=== PATIENT | female | born 1990 | race Caucasian/White ===

== ENCOUNTER 2020-04-08 09:09 | Outpatient (REF) | payer OTHER, SELFPAY ==
[2020-04-08 11:07] LABS: COVID-19 Test Negative (Negative)
== END 2020-04-08 09:10 | disposition home or self-care (01) ==
LOC: HO.LAB 09:09
PROVIDERS: Visit Provider Internal Medicine
DX: Z20.828 Contact with and (suspected) exposure to other viral communicable diseases (principal)
CPT/HCPCS: 87635; C9803

== ENCOUNTER 2020-05-16 09:40 | Outpatient (REF) | payer OTHER, SELFPAY ==
[2020-05-16 10:17] LABS: COVID-19 Test Negative (Negative); IDNOW Serial# 55D5AD1C
== END 2020-05-16 09:41 | disposition home or self-care (01) ==
LOC: HO.EMPCOV 09:40
PROVIDERS: Visit Provider Internal Medicine
DX: Z20.828 Contact with and (suspected) exposure to other viral communicable diseases (principal)
CPT/HCPCS: 87635; C9803

== ENCOUNTER 2020-05-21 06:37 | Outpatient (REF) | payer OTHER, SELFPAY ==
[2020-05-21 06:59] LABS: COVID-19 Test Negative (Negative)
== END 2020-05-21 06:38 | disposition home or self-care (01) ==
LOC: HO.EMPCOV 06:37
PROVIDERS: Visit Provider Internal Medicine
DX: Z20.828 Contact with and (suspected) exposure to other viral communicable diseases (principal)
CPT/HCPCS: 36415; 87635; C9803

== ENCOUNTER 2020-05-30 08:00 | Outpatient (RCR) | payer BC, SELFPAY | END 2020-06-21 07:31 | disposition other institution (70) | LOC: HO.PT 08:00 | PROVIDERS: Visit Provider Nurse Practitioner Pediatrics | DX: M45.9 Ankylosing spondylitis of unspecified sites in spine (principal) | CPT/HCPCS: 97110; 97112; 97140; 97162; 97530 ==

== ENCOUNTER 2020-08-19 12:53 | Outpatient (REF) | payer BC, SELFPAY ==
[2020-08-20 14:40] LABS: SARS-COV-2 PCR UMBRL NEGATIVE
== END 2020-08-19 12:54 | disposition home or self-care (01) ==
LOC: HO.LAB 12:53
PROVIDERS: Visit Provider Internal Medicine
DX: Z20.822 Contact with and (suspected) exposure to COVID-19 (principal)
CPT/HCPCS: 36415; C9803; U0003

== ENCOUNTER 2020-09-16 11:55 | Outpatient (REF) | payer OTHER, SELFPAY ==
[2020-09-16 12:28] LABS: COVID-19 Test Negative (Negative)
== END 2020-09-16 11:56 | disposition home or self-care (01) ==
LOC: HO.EMPCOV 11:55
PROVIDERS: Visit Provider Internal Medicine
DX: Z20.822 Contact with and (suspected) exposure to COVID-19 (principal)
CPT/HCPCS: 36415; 87635; C9803

== ENCOUNTER 2021-06-17 11:32 | Outpatient (REF) | payer BC, SELFPAY ==
[2021-06-20 15:17] LABS: TS Negative Control Passed; TS Panel A 0; TS Panel B 0; TS Positive Control Passed; TSpotTB Negative (Negative)
== END 2021-06-17 11:33 | disposition home or self-care (01) ==
LOC: HO.LAB 11:32
PROVIDERS: Visit Provider Physician Assistant
DX: Z11.1 Encounter for screening for respiratory tuberculosis (principal)
CPT/HCPCS: 36415; 86481

== ENCOUNTER 2021-08-06 08:47 | Outpatient (REF) | payer BC, SELFPAY ==
[2021-08-06 10:21] LABS: HBS Num1 24.45 mIU/mL (0-7.99); ~Hepatitis B Surface Antibody REACTIVE (Nonreactive)
[2021-08-08 01:32] LABS: Rubella IgG Antibody 3.07 Index
== END 2021-08-06 08:48 | disposition home or self-care (01) ==
LOC: HO.LAB 08:47
PROVIDERS: Visit Provider Physician Assistant
DX: Z01.84 Encounter for antibody response examination (principal)
CPT/HCPCS: 36415; 86706; 86735; 86762; 86765

== ENCOUNTER 2022-11-03 08:38 | Outpatient (REF) | payer BC, SELFPAY ==
[2022-11-03 10:01] LABS: MANUAL DIFF FLAG NO
[2022-11-03 10:11] LABS: Basophils Percent Auto 0.2 % (0-2); Eosinophils Absolute Auto 0.1 X10*3/uL (0.0-0.4); Eosinophils Percent Auto 0.9 % (0-4); Hematocrit 40.1 % (37.0-47.0); Hemoglobin 13.4 g/dl (12.0-16.0); Imm Gran Abs Auto 0.04 X10*3/uL (0.00-0.03); Imm Gran Pct Auto 0.4 % (0.0-0.4); Lymphocytes Absolute Auto 1.2 X10*3/uL (1.2-4.9); Lymphocytes Percent Auto 11.4 % (20-40); Mean Corpuscular HGB Conc 33.4 g/dl (31.0-35.0); Mean Corpuscular Hemoglobin 29.7 pg (27.0-33.0); Mean Corpuscular Volume 88.9 fL (80.0-98.0); Mean Platelet Volume 10.5 fL (9.4-12.3); Monocytes Absolute Auto 0.6 X10*3/uL (0.1-1.2); Monocytes Percent Auto 5.4 % (2-11); Neutrophils Absolute Auto 8.6 x10*3/uL (2.0-8.3); Neutrophils Percent Auto 81.7 % (45-73); Platelet Count 289 X10*3/uL (160-400); Red Blood Count 4.51 X10*6/uL (4.20-5.50); Red Cell Distribution Width 12.8 % (11.0-16.0); White Blood Count 10.6 X10*3/uL (4.8-10.8)
[2022-11-03 10:31] LABS: Glucose 1 Hour PP 50gm Dose 223 mg/dL (60-140)
[2022-11-04 04:10] LABS: Syphilis Screen Nonreactive (Nonreactive)
== END 2022-11-03 08:39 | disposition home or self-care (01) ==
LOC: HO.LAB 08:38
PROVIDERS: Visit Provider Advanced Practice Midwife
DX: O09.92 Supervision of high risk pregnancy, unspecified, second trimester (principal)
CPT/HCPCS: 36415; 82950; 85025; 86780

== ENCOUNTER → 2025-01-14 13:49 | Outpatient (BNV) | payer BC, SELFPAY | PROVIDERS: Emergency Provider Emergency Medicine; Visit Provider Radiology Diagnostic Radiology | DX: M54.2 Cervicalgia (principal); S09.90XA Unspecified injury of head, initial encounter; M21.252 Flexion deformity, left hip; Z00.00 Encounter for general adult medical examination without abnormal findings; M25.532 Pain in left wrist; M25.552 Pain in left hip; M79.642 Pain in left hand | CPT/HCPCS: 70450; 71045; 72125; 72220; 73110; 73130; 73502 ==

== ENCOUNTER 2025-01-14 13:51 | Emergency (ER) | payer SELFPAY ==
--- NOTE | ~2025-01-14 | XR_ITS ---
CLINICAL HISTORY: fall 4 views left wrist Comparison: None Findings: No carpal bone fractures or carpal malalignment. Distal radiocarpal joint intact. Radial and ulnar styloid preserved. No bony erosive changes. Bone mineralization and soft tissues within normal limits. No radiopaque foreign body. Impression: 1. Normal left wrist. This document has been electronically signed by: Gerardo Haddad MD on 01/14/2025 15:29:36
--- NOTE | ~2025-01-14 | XR_ITS ---
CLINICAL HISTORY: fall onto buttocks 3 views sacrum and coccyx Comparison: None Findings: There is foreshortening of the left femoral neck probable fracture correlate with dedicated left hip x-ray Sacrococcygeal joint intact.SI joints intact No radiopaque foreign body. Impression: 1. Marked foreshortening left femoral neck probable fracture correlate with a dedicated left hip x-ray. This document has been electronically signed by: Gerardo Haddad MD on 01/14/2025 15:32:39
--- NOTE | ~2025-01-14 | XR_ITS ---
CLINICAL HISTORY: fall ?L hip fx 2 views left hip. Single AP pelvis. Comparison: CR - XR SACRUM COCCYX MIN 2V - 01/14/25 14:54 EDT Findings: There is flattening of the left femoral head. Foreshortening of the left femoral neck Normal congruence of the right femoroacetabular joint. SI joints pubic rami and symphysis pubis intact. No periostitis or bony destruction. Bone mineralization and soft tissues within normal limits. No radiopaque foreign body. Impression: 1. There is [id number] flattening of the left femoral head with foreshortening of the left femoral neck. These findings may be developmental or due to remote trauma but a thin-section CT of the left hip to include the bony pelvis is recommended no contrast is necessary. Superimposed acute fracture needs to be excluded This document has been electronically signed by: Gerardo Haddad MD on 01/14/2025 16:54:18
--- NOTE | ~2025-01-14 | XR_ITS ---
CLINICAL HISTORY: med clearance 1 view chest x-ray. Comparison: None Findings: Normal lung volumes. Lungs are clear. No pneumothorax or pleural effusion. Heart size normal. No passive venous congestion. No midline shift or tracheal deviation. No acute fracture. Bilateral nipple piercings Impression: 1. No acute cardiopulmonary disease. This document has been electronically signed by: Gerardo Haddad MD on 01/14/2025 16:48:37
--- NOTE | ~2025-01-14 | XR_ITS ---
CLINICAL HISTORY: fall 3 views left hand Comparison: None Findings: No fractures, subluxations or dislocations. No periostitis or bony destruction. Joint intervals are preserved. Ulnar styloid perserved. Normal bone mineralization and soft tissues. Carpal bones unremarkable.. No radiopaque foreign body. Impression: 1. No acute fractures or malalignment This document has been electronically signed by: Gerardo Haddad MD on 01/14/2025 15:27:20
--- NOTE | ~2025-01-14 | CT_ITS ---
CLINICAL HISTORY: fall 8 ft w head strike CT cervical spine without intravenous contrast Comparison: None Findings: Craniocervical junction: No occipital condylar fractures. No evidence of atlantooccipital dissociation. The anterior and posterior arch and lateral masses of C1 are intact. Odontoid and atlanto-dental interval intact. The pars interarticularis of C2 is intact. There is normal vertebral body heights with no evidence of compression fracture. There is normal cervical alignment. No locked or perched facets. No spinous process fractures. Lordotic curvature is straightened. The retropharyngeal soft tissues are not widened. Segmental analysis as below (MR is more accurate in the evaluation of disc herniation and central canal pathology): C2-C3: No herniation or stenosis. C3-C4: No herniation or stenosis. C4-C5: No herniation or stenosis. C5-C6: No herniation or stenosis. C6-C7: No herniation or stenosis. C7-T1: No herniation or stenosis. The bones are without evidence of lytic or blastic lesion. Lung apices are unremarkable. Impression: 1. Negative CT cervical spine for acute process. This document has been electronically signed by: Gerardo Haddad MD on 01/14/2025 16:03:24
--- NOTE | ~2025-01-14 | CT_ITS ---
CLINICAL HISTORY: fall 8 ft w head strike CT head without IV contrast Comparison: None Findings: The ventricles are normal in configuration. Basilar cisterns intact. No intracranial hemorrhage, mass-effect or midline shift. No extra-axial fluid collections. The parenchyma is unremarkable in attenuation. Ruby-white matter junction preserved. No evidence of acute large vessel or territorial ischemia. Brainstem and cerebellum unremarkable. The calvarium is intact. The imaged portion of the paranasal sinuses are clear. No mastoid effusions. The orbital contents are unremarkable. Impression: 1. No CT evidence of acute intracranial pathology. Motion may obscure subtle pathology This document has been electronically signed by: Gerardo Haddad MD on 01/14/2025 16:09:07
[2025-01-14 14:00] VITALS: BP 121/67; PULSE 74; RESP 18; TEMP 36.3; O2SAT 98; BMI 40.9
--- NOTE | 2025-01-14 14:23 | ED.FALL ---
HPI - Fall General Chief Complaint: Fall Stated Complaint: Left hand/wrist injury Time Seen by Provider: 01/14/25 15:57 Source: patient and family () Mode of arrival: ambulatory Limitations: no limitations History of Present Illness ED Provider: DR. Martinez HPI Narrative: 34-year-old female with no significant past medical history, [id number] was brought in with her for evaluation after fell a flight of stairs with no side rail so patient fell backward from about 4 ft height landing on her buttock area tried to protect her fall with her both hands and wrist, striking the back of her head, no LOC, no headache, no chest pain, did not feel lightheadedness before the fall. 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 Related Data Allergies Allergy/AdvReac Type Severity Reaction Status Date / Time diphenhydramine (From Allergy Unknown HYPER AND Verified 01/14/25 14:02 BENADRYL) SHAKING Review of Systems Review of Systems: All other systems are reviewed and are negative Constitutional: Reports as per HPI and Reports no additional constitutional complaints Eyes: Reports as per HPI and Reports no additional eye complaints Reports system reviewed and no additional complaints, except as documented Cardiovascular: Reports as per HPI and Reports no additional cardiovascular complaints Respiratory: Reports as per HPI and Reports no additional respiratory complaints Gastrointestinal: Reports as per HPI and Reports no additional gastrointestinal complaints Genitourinary: Reports no additional female genitourinary complaints Musculoskeletal: Reports no additional musculoskeletal complaints Skin/Breast: Reports system reviewed and no additional complaints, except as docu Psychiatric: Reports no additional psychiatric complaints Endocrine: Reports no additional endocrine complaints Hematologic/Lymphatic: Reports no additional hematologic/lymphatic complaints Allergic/Immunologic: Reports no additional allergic/immunologic complaints Reports system reviewed and no additional complaints, except as documented and Reports Abnormal speech present [facility] Social History Social History Advance Directives: No Advance Directives Information Provided: Yes Physical Exam Vital Signs: Vital Signs: Last Vital Signs Temp 97.1 F 01/14/25 18:43 Pulse 65 01/14/25 18:43 Resp 18 01/14/25 18:43 BP 100/60 01/14/25 18:43 Pulse Ox 99 01/14/25 18:43 O2 Del Method Room Air 01/14/25 18:43 BMI result Body Mass Index 40.9 Vital signs have been reviewed and appear to be correct. Blood pressure elevated. Heart rate normal. Respiratory rate normal. Temperature normal. Oxygen saturation normal. Appearance: Alert. Oriented X3. No acute distress. Head: Normal external exam. Normocephalic. Atraumatic. No Klein signs noted. No raccoon eyes noted Eyes: PERRLA. EOMI. Conjunctiva and sclera normal. Eyelids normal. ENT: TM's Normal. Pharynx normal. Uvula midline. Moist mucous membranes. No trismus noted. No drooling noted. No muffled voice noted. Neck: Normal inspection. Neck supple. FROM. No adenopathy. Thyroid Normal. No meningeal signs. No neck mass noted. CVS: Normal heart rate and rhythm. Heart sound normal. No murmurs noted. Pulses normal throughout. Respiratory: No respiratory distress. Painless inspiration. Breath sounds normal. No wheezes/rales/rhonchi noted. Chest nontender. No accessory muscle usage noted or decreased air movement noted. Abdomen: Soft and nontender. Bowel sounds normal in all 4 quadrants. No distention noted. No organomegaly noted. No visible injury noted. Back: No CVA tenderness. Full range of motion noted. Skin: Skin warm and dry. Normal skin color. Normal skin turgor. No rashes/lesions/lacerations noted. Extremities: Left hand: Neurovascularly intact, + tenderness over anatomical snuffbox, patient can not clench fist with the left hand, pain with axial loading of the thumb, tenderness over the scaphoid process. Neuro: Oriented X 3. GCS 15. Cranial nerve exam: II-XII are grossly intact No motor deficit. No sensory deficit. Reflexes normal. Course Course Course Narrative: This is a Rapid Medical Examination (RME) performed by Jose Mantilla PA-C in triage. Full HPI, ROS, assessment and treatment plan per primary provider in the Main ED. Hx: 34 yo F here for eval of neck pain and left wrist pain s/p fall [employer]. reports sliding down a flight of stairs (approx 4 feet), fall onto buttocks with head strike. no loc. PE/vitals: no midline c spine tenderness Plan: imaging 2669 -- scans show probable L hip fracture. Will require further imaging. given SUELLEN, clinic charge nurse informed patient will need a bed. Reevaluation(s) Reevaluation #1: 1. A mechanical fall from 4 ft height complaining of left hand pain, high suspicion for left scaphoid process fracture with negative chest x-ray, thumb spica immobilization was applied until see orthopedic. 2. 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 3. GCS of 15, normal neuro exam, no cervical spine injury. Time: 19:45 Medications Administered Discontinued Medications Generic Name Dose Route Start Last Admin Trade Name Freq PRN Reason Stop Dose Admin Acetaminophen 975 mg 01/14/25 17:57 01/14/25 18:21 Acetaminophen 325 Mg Tablet PO 01/14/25 17:58 975 mg ONCE ONE Administration Procedures Orthopedic Splinting/Casting Injury #1: Side: left Upper Extremity Injury Location: wrist Upper Extremity Immobilizer: thumb spica Medical Decision Making Differential Diagnosis Differential Diagnoses: The differential diagnosis associated with the presentation includes (Intracranial bleed, cervical spine fracture, chest injury, back injury, abdominal injury, left hip fracture, old congenital hip deformity, electrolyte derangement, severe anemia.) Admission/Observation Consideration of admission/observation: Escalation of care including admission/observation considered Lab Data MDM Lab Attestation statement: I reviewed the patient's lab results. 01/14/25 16:56 01/14/25 16:56 Labs: Lab Results 01/14/25 Range/Units 16:56 WBC 10.8 (4.8-10.8) X10*3/uL RBC 4.52 (4.20-5.50) X10*6/uL Hgb 13.7 (12.0-16.0) g/dl Hct 40.7 (37.0-47.0) % MCV 90.0 (80.0-98.0) fL MCH 30.3 (27.0-33.0) pg MCHC 33.7 (31.0-35.0) g/dl RDW 12.6 (11.0-16.0) % Plt Count 300 (160-400) X10*3/uL MPV 9.9 (9.4-12.3) fL Immature Gran % (Auto) 0.3 (0.0-0.4) % Neut % (Auto) 69.7 (45-73) % Lymph % (Auto) 18.9 L (20-40) % Wilcox % (Auto) 7.5 (2-11) % Eos % (Auto) 3.1 (0-4) % Baso % (Auto) 0.5 (0-2) % Lymph # (Auto) 2.0 (1.2-4.9) X10*3/uL Wilcox # (Auto) 0.8 (0.1-1.2) X10*3/uL Eos # (Auto) 0.3 (0.0-0.4) X10*3/uL Baso # (Auto) 0.1 (0.0-0.2) X10*3/uL Abs Immat Gran (auto) 0.03 (0.00-0.03) X10*3/uL Absolute Neuts (auto) 7.6 (2.0-8.3) x10*3/uL Absolute Nucleated RBC 0.000 (0.0-0.012) X10*3/uL Nucleated RBC % (auto) 0.0 (0.0-0.2) /100WBC Sodium 139 (135-145) mmol/L Potassium 3.7 (3.3-5.1) mmol/L Chloride 104 (96-108) mmol/L Carbon Dioxide 26 (22-29) mmol/L Anion Gap 13 (12-20) BUN 16 (9-16) mg/dL Creatinine 0.64 (0.5-1.4) mg/dL Estim Creat Clear Calc 135.4 Estimated GFR > 60 Random Glucose 86 (60-115) mg/dL Calcium 9.1 (8.4-10.2) mg/dL Troponin I High Sens < 2.7 (<3.5-17.0) ng/L Beta HCG, Quant < 2 mIU/mL Independent Interpretation I performed an independent interpretation of an: Plain X-Ray (Hip/pelvis/chest/left hand/left wrist x-ray/sacrum and coccyx x-ray:1. There is kpyp-eu-qcbgmema flattening of the left femoral head with foreshortening of the left femoral neck. These findings may be developmental or due to remote trauma but a thin-section CT of the left hip to include the bony ) and CT Scan (CT head/C-spine: No acute intracranial pathology, no cervical spine injury.) Radiology Impression Discussion of test interpretation with radiology: I have reviewed the radiologist's reading. Discharge Plan Discharge Clinical Impression: Contusion of back, Closed fracture of scaphoid of left wrist Patient Disposition: Home, Self-Care Instructions: Contusion in Adults (ED), Scaphoid Fracture (ED) Additional Instructions: Take vyyt-pao-pqwegko Tylenol every 6 hours if needed for pain. Keep the splint on your left wrist until you see the orthopedic. Referrals: Molly Rose MD [Physician, Hand Surgery] Stand Alone Forms: Work/School Release Print Language: Ghanaian
--- OUTSIDE RECORDS SUMMARY | 2025-01-14 16:23 | XMS_ITS | Encounter Summary ---
Author Organization [facility] Address [address] [place] [phone] Phone Care Team Providers Care Criminology Professor Name Role Phone Dona Anderson MD Unavailable Nacho Martin MD Primary Care Provider [phone] Reason for Referral * Consultation (Within 3 days (urgent)) - Closed Specialty Diagnoses / Procedures Referred By Valery t Referred To Contact Rhonda Ray CNM [address] [place] [phone] Phone: tel: fax: [email or web address] [address] [place] [address] Phone: tel: Referral ID Status Reason Start Date Expiration Date Visits Re quested Visits Authorized [id number] Closed 12/04/2022 12/05/2023 1 1 Encounter Details Date Type Department Care Team (Late st Contact Info) Description 12/04/2022 Telephone [facility] Obstetrics - Virtual Department [address] [place] [phone] Rhonda Ray CNM [address] [phone] Social History Tobacco Use Types Packs/Day Years Used Date Smoking Tobacco: Never Smokeless Tobacco: Never Alcohol Use Standard Drinks/Week Comments Not Currently 0 (1 standard drink = 0.6 oz pur e alcohol) Occ Education Answer Date Recorded Are you interested in more education? Not on nancy e 09/11/2022 Are you concerned about learning? Not on file 09/11/2022 No 09/11/2022 No 09/11/2022 Digital Access Answer Date Recorded No 10/12/2022 No 10/12/2022 Reliable internet access at home? Not on file 10/12/2022 Device with a working camera? Not on file Comments Yes Sex and Gender Information Value Date Recorded Sex Assigned at Not on file Legal Sex Female 8:58 PM EDT Gender Identity Not on file Sexual Orientation Not on file documented as of this encounter Plan of Treatment Scheduled Referrals Name Type Priority Associated Diagnoses Order Schedule Ambulatory referral to [facility] Sleep Medicine Outpatient Referral Routine Ordered: 12/04/2022 documented as of this encounter Visit Diagnoses Not on filedocumented in this encounter Care Teams Criminology Professor Relationship Specialty Start Date End Date Nacho Martin MD [address] [place] [address] [phone] [email or web address] PCP - General 05/20/17 Dona Anderson MD [address] [place] [phone] [email or web address] Historical LMR Provider 03/04/17 documented as of this encounter Additional Source Comments The information contained in this document represents components of the legal health record. It is not the complete legal health record.[facility]
--- OUTSIDE RECORDS SUMMARY | 2025-01-14 16:23 | XMS_ITS | Clinical Summary ---
Author Organization [facility] Address [address] [place] [id number] Phone Care Team Providers Care Magnetic Tape Composer Operator Name Role Phone Dona Anderson MD Unavailable Nacho Martin MD Primary Care Provider [phone] Allergies Active Allergy Reactions Criticality Noted Date Comments Diphenhydramine Hcl 07/22/2016 Medications vitamins with ferrous fumaric-Folic acid (MARY ) 28 mg iron- 800 mcg Tab Take 1 tablet (0.8 mg total) by mouth daily. 90 tablet 3 3 Active FREESTYLE LITE Strp strips 1 each by Miscellaneous route 4 (four) times a day. 150 strip 11 3 Active FREESTYLE LITE METER meter kit Use as instructed 1 each 3 Active lancets 28 gauge Misc 1 each by Miscellaneous route 4 (four) times a day. 150 each 11 3 Active acetone, urine, test (KETONE URINE TEST) Strp 1 each by Miscellaneous route every morning. 50 strip 10 3 Active omeprazole (PRILOSEC) 20 MG capsule Take 1 capsule (20 mg total) by mouth daily. 30 capsule 3 Active Active Problems Problem Noted Date Diagnosed Date Pre-eclampsia in third trimester 12/06/2022 Overview (12/14/2022): Pt transferred to [facility] and having IOL at 34w for severe features & ?partial placental abruption. Will likely return to [facility] for and [facility] for PPV 2x wkly HELLP labs Immediate eval of well being PE and serial BP (in office or CBC) 2x wkly visits Betamethasone if < 34 wks 2x wkly BPP/NST Growth q 3-4 wks Delivery at 37 wks Assessment & Plan (01/07/2023 10:36 PM EDT): Fifi is a 32 y.o. at 33w5d here for surveillance due to new diagnosis of pre-e. She Denies any SWEENEY, epigastric pain, Visual changes, and sudden onset of swelling. Overall she feels well. Had questions on [facility] and which group to see since she has decided to transfer care due to her diagnosis. -Reactive NST today in the office Assessment & Plan (12/06/2022 11:14 PM EDT): Fifi was diagnosed with pr-e yesterday. See CBC encounter She needs the following f/u: -Twice weekly testing with NST one day and BPP another day w/ visits w/ provider on both days for BP checks -Weekly repeat labs -She is coming to the CBC tomorrow for NST and repeat steroids. Will need a BPP at the end of the week -orders placed Toshia Goins CNM Assessment & Plan (12/06/2022 10:29 PM EDT): -Repeat labs -NST -Will discuss POC going forward -12/06/22 10:08 PM -Reactive NST -Denies any SWEENEY, epigastric pain, Visual changes, and sudden onset of swelling. - Component Ref Range & Units 12/06/22201112/04/22 1321 09/03/22 0827 URINE TOTAL PROTEIN mg/dL 186.9 86.5 7.6 URINE CREATININE mg/dL 105 165 60 URINE TP CRE RATIO 0 - 0.19 1.78 High 0.52 High 0.13 ALKALINE PHOSPHATASE 39 - 117 U/L 157 High 83 TOTAL BILIRUBIN 0.0 - 1.2 mg/dL <0.2 0.2 DIRECT BILIRUBIN 0 - 0.3 mg/dL <0.2 Bilirubin (Indirect) 0 - 1.5 mg/dL NOT CALCULATED AST 0 - 37 U/L 17 17 18 ALT 0 - 40 U/L 28 35 16 Component Ref Range & Units 12/06/22202712/04/22 1302 09/03/22 0827 07/07/22 1703 WBC 4.00 - 11.00 K/uL 9.27 9.13 12.32 High 11.20 High RBC 3.72 - 5.30 M/uL 4.06 4.67 4.37 4.38 HGB 10.6 - 15.5 g/dL 12.2 13.8 13.1 13.4 HCT 32.0 - 45.0 % 35.5 41.5 38.5 37.9 PLT 140 - 430 K/uL 254 262 -Discussed pre-e theoretical etiologies. Also advised on placental hormone influence. We also discussed management going forward. She is aware of twice weekly testing, weekly labs and BP checks. -Recommended Cel[place] for lung maturity. Discussed Benefits/ and SE. Also discussed the potential risks of prematurity for the baby. She agrees with POC -If plan changes to delivery before 35wks she will need to deliver at [facility] -She will need to come back to the CBC tomorrow night at 10pm for 2nd dose of celeston -RN will call her tomorrow to schedule f/u in the office -Discussed Pre-e SE and when to call cnm Assessment & Plan (12/06/2022 5:24 PM EDT): Preeclampsia diagnosis at 33wks. Mild range B/Ps and TPCR of 0.52. Encounter for supervision of normal first in first trimester 12/04/2022 Gestational diabetes mellitus (GDM) in [facility] 11/05/2022 Overview (11/05/2022): Diagnosis of gDM - 1-hr GTT 223 (in media) 1 hour 130 (Deb Dwyer) or 140 (National Diabetes Association), and 180 is overt diagnosis 3 hour gtt: 3 hr: 95/ 180 / 155 / 140 (Deb Dwyer) 2 values equal or greater Plan for diet controlled gDM o CEDE o Routine care Assessment & Plan (12/03/2022 9:01 AM EDT): Pt reports most fastings are in the 70-80s range with outlier of 94. All 1hr pp normal except one which was 150 after visiting her mom and eating potatoes. Pt very aware of which foods increase her BS. Has appt with KRISHANClarence on Wednesday. We discussed possibility of pre-existing insulin resistance based on family hx, high 1hr of 223, and A1C of 5.7 during We discussed primary goal is to control bs during and encouraged pt to follow up with PCP pp. Pt is exercising regularly --walking. Assessment & Plan (11/19/2022 9:35 AM EDT): Was referred to [facility] but has not heard from them yet - given instructions to call for appt. Has been testing and following ADA diet. Rare fasting elevations, range 75-110, 12 days of QID testing reviewed and only 4 abnormal values. Advised she is off to a great start. F/u with [facility] for further counseling Assessment & Plan (11/05/2022 10:05 AM EDT): Reviewed diagnosis today. Discussed rationale for treatment, plan of care for . 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 Gave limited counseling info in AVS and sent testing supplies to pharmacy. Referred to [facility]. She will start logging right away so she can bring into to them. Right ovarian cyst 10/02/2022 Overview (10/02/2022): 2.5 cm complex cyst seen on anatomy US Not seen on follow up Follow up PP at 6 weeks Assessment & Plan (10/02/2022 10:17 AM EDT): 2.5 cm complex cyst seen on anatomy US Not seen on follow up Follow up PP at 6 weeks High-risk , third trimester 05/28/2022 Overview (11/19/2022): CNM OB-CMI score: 0 [05/26/2022] Group PN care? * Rh pos GC/Chlam neg PAP 06/2022 NILM HPV neg Tdap 11/19/22 Flu rec'd fall 2021 COVID-19 received x 2 + booster Hgb 13.4 GTT 223 - GDM dx 28 wk Repeat RPR neg GBS * PPBC * screening plans cfDNA, carrier screening Assessment & Plan (12/03/2022 8:56 AM EDT): Fifi is a 32yo @32+6 wks baby is very active. Pt denies vb, lof, ctxs Pt has preps in place for baby boy Joe . Not planning circ Has ongoing pedal and LLE, normotensive, encouraged comforts GERMAIN 2 wks. Assessment & Plan (11/19/2022 9:38 AM EDT): Here with her partner. Has been feeling well. Recently seen in hospital for swelling and elevated BP recorded at school - BP was normotensive in the hospital. We discussed third trimester warning signs, including s/s of pre-e, and reasons to call, affirmed decision to reach out that night as she was worrying it might have been too hasty. Feeling ample FM. EPDS 3, reviewed resources. TDAP today. Discussed alternatives to [facility] CBE as it does not work with her schedule. 2+ proteinuria seen following visit, normotensive. Consider renal labs if still elevated at n.v. Assessment & Plan (11/05/2022 10:07 AM EDT): Here with her partner. Second trimester flew by! Now feeling some more discomforts. Sleeping is challenging, mostly due to heartburn, which seems somewhat positional. Heartburn is really severe for her, takes max # of Tums by midday without relief. Cannot sleep due to heartburn, wakes up and vomits. Discussed starting omeprazole, she will try this, check in at n.v. Assessment & Plan (10/02/2022 10:16 AM EDT): Fifi is a 32 y.o. at 24w0d doing well. Denies VB/LOF/Ctxs. + FM. Discussed 28 week labs and orders placed. 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 Just shadowed a L&D nurse and loved it! Had nml Anatomy US follow up Assessment & Plan (09/04/2022 10:40 AM EDT): Fifi is doing well today- she just had her anatomy scan, appropriate growth, f/u scheduled for limited views. 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 She is worried about timing and missing classes. I encouraged Fifi to continue communicating with her disability program navigator as progresses. We will continue to discuss as well. Fifi had HELLP labs ordered after calling with LE edema and an elevated BP, BP normal today and labs all normal. She has ordered a home cuff, encouraged to bring to next visit to ensure accuracy. GERMAIN in 4 weeks. Assessment & Plan (08/03/2022 1:48 PM EDT): Jemima feels pretty well, still has some days with nausea but mostly improving. Reviewed low-risk cfDNA, neg carrier screening. She is having a libertarian to learn predicted sex this weekend. BP has been mildly elevated at all visits so far. She thinks she has white coat hypertension. Recommended she obtain a home BP cuff and bring to her next visit to calibrate; reviewed utility of checking BP at home when dx of htn is indeterminate. Discussed and ordered anatomy scan. Discussed quickening. Obesity affecting in first trimester 0 05/28/2022 Overview (10/01/2022): Obesity in (BMI >30) BMI at Intake 43 Date Obesity plan of care discussed 05/26/22 BMI > 50 (at 36 weeks or before) transfer to tertiary care * If BMI 40 or greater discuss policy w patient * first trimester screen for diabetes - HgbA1c or 1-hr glucose tolerance test * Nutrtion counseling * 11-20lb weight gain * Growth sono q 4 wks if fundal height not reliable, after 28 weeks * Induction only if indicated * PP lovenox according to guidelines Resolved Problems Problem Noted Date Diagnosed Date Resolved Date IUD (intrauterine device) in place 12/01/2017 06/07/2019 Immunizations Immunization Administration Dates Next Due DTaP, unspecified formulation 11/15/1997 ,04/06/1994,06/05/1993,1992,1992 HPV, unspecified formulation 06/08/2008,08/18/19 08 HPV,quadrivalent 12/03/2008 Hepatitis B, unspecified formulation 11/15/1997, 01/19/1997,07/13/1996 Hib, unspecified formulation 07/13/1996, 06/05/1993,02/10/1993,1992 INFLUENZA, SPLIT VIRUS, TRIV ALENT W/ PRESERVATIVE IM 04/19/2012,03/01/2009 Influenza Quadrivalent Prese rvative Free IM 02/13/2020,03/02/2018,01/29/2016,2012 Influenza Quadrivalent w/ Preservative IM 02/22/2019,02/26/2017 MMR 11/15/1997,04/06/1994 Novel [id number], Injectable 03/01/2009 Polio - OPV 11/15/1997, 4,02/10/1993,1992 Td, unspecified formulation 01/12/2005 Tdap 11/19/2022,09/28/2010 Family History Medical History Relation Comments Diabetes mellitus Mother 2 Relation Status Comments Mother 1 Alive Mother 2 Social History Tobacco Use Types Packs/Day Years Used Date Smoking Tobacco: Never Smokeless Tobacco: Never Tobacco Cessation:Counseling Given: Not Answered Alcohol Use Standard Drinks/Week Comments Not Currently [...] a working camera? Not on file Comments No Sex and Gender Information Value Date Recorded Sex Assigned at Not on file Legal Sex Female 8:58 PM EDT Gender Identity Not on file Sexual Orientation Not on file Last Filed Vital Signs Vital Sign Reading Time Taken Comments Blood Pressure 122/82 12/09/2022 11:44 AM EDT Pulse 98 12/07/2022 10:31 PM EDT Temperature 36.8 C (98.2 F) 12/07/2022 10:00 PM EDT Respiratory Rate 20 12/04/2022 11:45 AM EDT Oxygen Saturation 99% 12/07/2022 10:45 PM EDT Inhaled Oxygen Concentration - - Weight 116.1 kg (256 lb) 12/09/2022 11:44 AM EDT Height 154.9 cm (5' 1 ) 12/04/2022 11:45 AM EDT Body Mass Index 48.37 12/04/2022 11:45 AM EDT Plan of Treatment Health Maintenance Due Date Last Done Comments DEPRESSION SCREENING 2004 COVID-19 VACCINE ( season) 2024 PAP SMEAR 07/07/2025 07/07/2022, 01/29/2016 Adult Td,Tdap Booster 11/19/2032 11/19/2022 , 09/28/2010, 01/12/2005 HIB VACCINES Completed 07/13/1996, 05/18, 02/10/1993, Additional history exists HEPATITIS C SCREENING Completed 07/07/2022 HIV ONE-TIME SCREENING (18-65 YEARS) Completed 07/07/2022 SMOKING STATUS SCREENING (Once After 26 Yrs) Completed 10/02/2022 HEPATITIS A VACCINES Aged Out No long er eligible based on patient's age to complete this topic MENINGOCOCCAL VACCINES (ACWY) Aged Out No longer eligible based on patient's age to complete this topic MENINGOCOCCAL VACCINES (B) Aged Out N o longer eligible based on patient's age to complete this topic PNEUMOCOCCAL VACCINES (0-49 years) Aged Out No longer eligible based on patient's age to complete this topic Medical Devices Not on file Procedures Procedure Name Priority Date/Time Associated Diagnosis Comments HEPATITIS C ANTIBODY, QUALITATIVE Routine 07/07/2022 5:03 PM EST Need for hepatitis C screening test PAP TEST Routine 07/07/2022 12:00 AM EST from Last 3 Months or Most Recently Relevant to Health Maintenance Results * Hepatitis C antibody, qualitative (07/07/2022 5:03 PM EST) HCV NON-REACTIV E NON-REACTI VE [facility] Blood 07/07/2022 5:03 PM EST 07/07/2022 9:27 PM EST Caroline Nuñez [facility] BLOOD ORDERABLES Final Resul t [address] [address] * Pap Test (07/07/2022 12:00 AM EST) 07/07/2022 07/08/2022 9:5 1 AM EST Narrative SEE NARRATIVE - 07/13/2022 11:18 AM EST [address] [address] Market Sales Manager: Ree Stafford MD POLISH COMPOUNDER Cytology Report FINAL DIAGNOSIS A. PAP SMEAR (SUREPATH) CE: SPECIMEN ADEQUACY: Satisfactory for evaluation; transformation zone absent/insufficient. INTERPRETATION: NEGATIVE FOR INTRAEPITHELIAL LESION OR MALIGNANCY. Electronically Signed Out By: CLINT Coleman(ASCP) The Pap test is a screening test primarily for squamous cancers and precursors and has associated false-negative and false-positive results. New technologies such as liquid-based preparations may decrease but will not eliminate all false-negative results. Regular sampling and follow-up of unexplained clinical signs and symptoms are recommended to minimize false negative results. PROCEDURES/ADDENDA HPV Testing (Requested) Ordered Date: 07/08/2022 A. PAP SMEAR (SUREPATH) CE: Human Papilloma Virus Test NEGATIVE for high-risk Human Papilloma Virus types 16, 18, 45 and the Other high risk probe set (Includes 31, 33, 35, 39, 51, 52, 56, 58, 59, 66, 68) Note: Testing performed by [employer] Onclarity HR-HPV analysis. Clinical correlation is advised. This HPV test was performed at [facility], [address] [place] [address]. This test has been FDA approved for SurePath cervical cytology specimens. The accuracy and precision of this test for all other specimen sources has been verified in the Cytopathology Laboratory of the [facility] and has not been cleared or approved by the U.S. Food and Drug Administration. Clinical correlation is advised. CLINICAL HISTORY Date of Last Menstrual Period: Not Provided Menstrual History: Other Clinical Conditions: Screening Pap SPECIMEN SOURCE A: PAP SMEAR (SUREPATH) CE Patient Name: FIFI MARISCAL : 1990 (Age: 32) Sex: F Institution: [facility] Location: [facility] Date of Collection: 07/07/2022 Date of Reported: 07/13/2022 11:18 Results to: Caroline Nuñez MSN Caroline Nuñez CNM CYTOLOGY ORDERABLES Final Result SEE NARRATIVE from Last 3 Months or Most Recently Relevant to Health Maintenance Insurance [employer] NET PARTIAL PPO HEALTH SAFETY NET PARTIAL Member Subscriber Plan / Payer (Ef fective 2022-) Name:Fifi Mariscal Relation to Subscriber:Self Name:Fifi Mariscal Payer ID:Not on file Group ID:Not on file Type:Medicaid Address: [address] OUT STATE PPO [facility] SAFETY NET PARTIAL Member Subscriber Plan / Payer (Ef fective 2022-) Name:Fifi Mariscal Relation to Subscriber:Self Name:Fifi Mariscal Payer ID:Not on file Group ID:Not on file Type:Medicaid Address: [address] OUT [facility] PPO Member Subscriber Plan / Payer (Ef fective 2022-Present) Name:Fifi Mariscal Relation to Subscriber:Self Name:Fifi Mariscal Payer ID:Not on file Group ID:Not on file Type:Medicaid Address: [address] PPO OUT STATE PPO HEALTH SAFETY NET PARTIAL Member Subscriber Plan / Payer (Ef fective 2022-Present) Name:Fifi Mariscal Relation to Subscriber:Self Name:MariscalFifi sanchez Payer ID:Not on file Group ID:Not on file Type:Medicaid Address: [address] PPO HEALTH SAFETY NET PARTIAL Member Subscriber Plan / Payer (Ef fective 2022-Present) Name:Fifi Mariscal Relation to Subscriber:Self Name:Fifi Mariscal Payer ID:Not on file Group ID:Not on file Type:Medicaid Address: [address] OUT [facility] PPO HEALTH SAFETY NET PARTIAL Member Subscriber Plan / Payer (Ef fective 2022-Present) Name:Fifi Mariscal Relation to Subscriber:Self Name:Fifi Mariscal Payer ID:Not on file Group ID:Not on file Type:Medicaid Address: [address] OUT [facility] PPO Claire AKINS MA [facility] SAFETY NET PARTIAL Member Subscriber Plan / Payer (Ef fective 2022-Present) Name:Fifi Mariscal Relation to Subscriber:Self Name:Fifi Mariscal Payer ID:Not on file Group ID:Not on file Type:Medicaid Address: [address] PPO Advance Directives For more information, please contact: [phone] (9AM - 5PM Jaylyn/[facility], Wednesday-Wednesday) * Full Code (Latest Code Status on File) Date Activated Date Inactivated Comments 12/06/2022 8:05 PM Question Answer Comments Code Status Confirmed With: Patient Care Teams Magnetic Tape Composer Operator Relationship Specialty Start Date End Date Nacho Martin MD [address] [place] [address]. [address] [place] [address] [email or web address] PCP - General 05/20/17 Dona Anderson MD [address] [place] [address], [place] [address] [email or web address] Historical LMR Provider 03/04/17 Additional Source Comments The information contained in this document represents components of the legal health record. It is not the complete legal health record.[facility]
[2025-01-14 16:58] VITALS: BP 115/62; PULSE 82; RESP 18; TEMP 36.4; O2SAT 97
[2025-01-14 17:05] LABS: MANUAL DIFF FLAG NO
[2025-01-14 17:11] LABS: Hematocrit 40.7 % (37.0-47.0); Hemoglobin 13.7 g/dl (12.0-16.0); Imm Gran Abs Auto 0.03 X10*3/uL (0.00-0.03); Imm Gran Pct Auto 0.3 % (0.0-0.4); Lymphocytes Absolute Auto 2.0 X10*3/uL (1.2-4.9); Mean Corpuscular HGB Conc 33.7 g/dl (31.0-35.0); Mean Corpuscular Hemoglobin 30.3 pg (27.0-33.0); Mean Corpuscular Volume 90.0 fL (80.0-98.0); NRBC Abs Auto 0.000 X10*3/uL (0.0-0.012); NRBC Pct Auto 0.0 /100WBC (0.0-0.2); Platelet Count 300 X10*3/uL (160-400); Red Blood Count 4.52 X10*6/uL (4.20-5.50); White Blood Count 10.8 X10*3/uL (4.8-10.8)
[2025-01-14 17:19] LABS: Anion Gap 13 (12-20); Blood Urea Nitrogen 16 mg/dL (9-16); Calcium 9.1 mg/dL (8.4-10.2); Carbon Dioxide 26 mmol/L (22-29); Chloride 104 mmol/L (96-108); Creatinine Clr Calc Pharmacy 135.4; Estimated Glomerular Filt Rate > 60; Potassium 3.7 mmol/L (3.3-5.1); Sodium 139 mmol/L (135-145)
[2025-01-14 17:32] LABS: Troponin-I High Sensitivity < 2.7 ng/L (<3.5-17.0)
[2025-01-14 18:43] VITALS: BP 100/60; PULSE 65; RESP 18; TEMP 36.2; O2SAT 99
--- NOTE | 2025-01-14 19:39 | PC.NURSE ---
this rn assumed care of pt, pt resting in stretcher, no acute distress noted.
[2025-01-14 20:12] VITALS: BP 100/60; PULSE 65; RESP 18; TEMP 36.2; O2SAT 99
== END 2025-01-14 20:12 | disposition home or self-care (01) ==
PROVIDERS: Physician Assistant Medical; Emergency Provider Emergency Medicine
DX: S62.002A Unspecified fracture of navicular [scaphoid] bone of left wrist, initial encounter for closed fracture (principal); S30.0XXA Contusion of lower back and pelvis, initial encounter; M54.50 Low back pain, unspecified; R10.2 Pelvic and perineal pain; M54.2 Cervicalgia; R51.9 Headache, unspecified; M25.532 Pain in left wrist; M53.3 Sacrococcygeal disorders, not elsewhere classified; M79.642 Pain in left hand; R07.89 Other chest pain; W10.9XXA Fall (on) (from) unspecified stairs and steps, initial encounter; Y93.9 Activity, unspecified; Y92.9 Unspecified place or not applicable; Y99.8 Other external cause status; Z79.899 Other long term (current) drug therapy
CPT/HCPCS: 29125; 29130; 36415; 70450; 71045; 72125; 72220; 73110; 73130; 73502; 80048; 84484; 84702; 85025; 99284

== ENCOUNTER 2025-01-24 10:28 | Outpatient (AMB) | payer MEDICAID, SELFPAY ==
[2025-01-24 10:47] VITALS: BMI 40.8
--- NOTE | 2025-01-24 10:47 | MHC.OFFVIS ---
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 Seen at ED [facility] where xrays were taken and fracture was confirmed. Patient was advise to wear splint and was referred to orthopedics for further evaluation of her closed fracture of scaphoid of left wrist. Currently states she is doing a little better, swelling has improved however she is having pain around wrist and radiates to her index finger. Allergies diphenhydramine (From BENADRYL) Allergy (Unknown, Verified 01/24/25 10:54) HYPER AND SHAKING HPI HPI FC-Closed fracture of scaphoid of left wrist: Details: Brianna is a 34 year old right hand dominant woman who presents for a possible left scaphoid fracture, S/P fall, DOI: 01/14/25. She was seen in the ED and placed in a thumb spica splint. She complains of pain in her left 2nd MCP joint & wrist, worse with some ROM or activities. She fell off of her basement stairs, as there was no railing at the time in her new house. 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 [facility] Social History (Updated 01/24/25 @ 11:05 by Ree Valerio 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 [employer] All systems reviewed & are unremarkable except as noted in HPI and below Physical Exam Vital Signs: BMI result Body Mass Index 40.8 Const General: cooperative, healthy appearing and no acute distress Orientation/consciousness: patient oriented x3 HEENT Head: Yes normocephalic and Yes atraumatic Eyes EOM: EOMs intact bilaterally Resp Effort & Inspection: normal respiratory effort and able to speak in complete sentences Cardio Jugular venous distension: no JVD Skin General skin exam: turgor normal Rashes: no rashes Neuro General: patient oriented x3 Extrem Other: Evaluation of Left Upper Extremity: The patient is alert, oriented, and in no acute distress Neuro: Median, Ulnar, Radial nerves motor and sensory intact and sensation is normal to the tips of all digits Vascular: Cap refill brisk ROM: She can make a fist and extend all her digits, with some stiffness after wearing her splint Skin: No lacerations or abrasions. General: No Ecchymosis. No Erythema or evidence of infection. Most tender over the 2nd MCP joint Tender over the dorsal aspect of her wrist Mild snuffbox tenderness No tenderness over the scaphoid tubercle Radiographs: 3 views of the left wrist & scaphoid were taken and viewed by me today in clinic. They show a possible non-displaced scaphoid fracture, involving the distal third, there is also some widening of the scapholunate interval of ~3.4mm. Interestingly Left hand pencil press operator carbon products view taken and reviewed today. This did not show any widening bilaterally. Psych Appearance: grossly normal Affect: normal affect Attitude: cooperative Assessment & Plan Assessment & Plan (1) Contusion of left hand: Code(s): S60.222A - Contusion of left hand, initial encounter Category: Medical (2) Left wrist pain: Code(s): M25.532 - Pain in left wrist Category: Medical Plan Assessment & Plan: 1. Left scapholunate interval widening Seen on radiographs, though not the pencil press operator carbon products view 2. Possible left distal third scaphoid fracture 3. Left 2nd MCP joint contusion, S/P fall DOI: 01/14/25 I educated her about these conditions She was fitted for a velcro wrist splint, to be worn like a cast until her next appointment She will work on gentle ROM exercises, while in her splint I discussed activity modifications, she is to lift nothing heavier than a cellphone and also avoid any heavy impact activities, falls, or sports activities until at least her next appointment She works as a nurse, primarily on a computer. She was given a note for work to return to light duty with a 1lb weight limit for the next 4 weeks. I ordered an MRI of her left wrist to evaluate for possible scapholunate ligament injury. It will also image the scaphoid. She will follow up on 01/30/25 when completed for review, this should be a 30 minute appointment Scribed for Molly Rose MD by Eric Leon, emergency medical service manager, on 01/24/25 at 10:50 AM, EST. Orders: Orders MR wrist LT wo con Today M25.532 - Pain in left wrist XR wrist LT w scaphoid Today M25.532 - Pain in left wrist XR wrist LT 2V Today M25.532 - Pain in left wrist Coding Level of Care Code New Pt Level 4 (47566) Diagnoses Contusion of left hand S60.222A Left wrist pain M25.532
--- OUTSIDE RECORDS SUMMARY | 2025-01-24 12:46 | XMS_ITS | Encounter Summary ---
Author Organization [facility] Address [address] [place] [address] Phone Care Team Providers Care Assistant Printer Floor Covering Name Role Phone Dona Anderson MD Unavailable Nacho Martin MD Primary Care Provider [phone] Reason for Referral * Consultation (Within 3 days (urgent)) - Closed Specialty Diagnoses / Procedures Referred By Valery t Referred To Contact Rhonda Ray CNM [address] [place] [address] Phone: tel: fax: [email or web address] [facility] [address] [place] [address] Phone: tel: Referral ID Status Reason Start Date Expiration Date Visits Re quested Visits Authorized [id number] Closed 12/04/2022 12/05/2023 1 1 Encounter Details Date Type Department Care Team (Late st Contact Info) Description 12/04/2022 Telephone [facility] Obstetrics - Virtual Department [address] [place] [address] Rhonda Ray CNM [address] [phone] [email or web address] Social History Tobacco Use Types Packs/Day Years [...] Associated Diagnoses Order Schedule Ambulatory referral to [facility] Sleep Medicine Outpatient Referral Routine Ordered: 12/04/2022 documented as of this encounter Visit Diagnoses Not on filedocumented in this encounter Care Teams Assistant Printer Floor Covering Relationship Specialty Start Date End Date Nacho Martin MD [address] [place] [address] [id number] [email or web address] PCP - General 05/20/17 Dona Anderson MD [address] [place] [phone] [email or web address] Historical LMR Provider 03/04/17 documented as of this encounter Additional Source Comments The information contained in this document represents components of the legal health record. It is not the complete legal health record.[facility]
--- OUTSIDE RECORDS SUMMARY | 2025-01-24 12:46 | XMS_ITS | Clinical Summary ---
Author Organization [facility] Address [address] [place] [address] Phone Care Team Providers Care Provider Relations Representative Name Role Phone Dona Anderson MD Unavailable Nacho Martin MD Primary Care Provider [phone] Allergies Active Allergy Reactions Criticality Noted Date [...] trimester 12/06/2022 Overview (12/14/2022): Pt transferred to [facility] and having IOL at 34w for severe features & ?partial placental abruption. Will likely return to [facility] for and [facility] for PPV 2x wkly HELLP labs Immediate [...] 35wks she will need to deliver at [facility] -She will need to come back [...] trimester 12/04/2022 Gestational diabetes mellitus (GDM) in [facility] 11/05/2022 Overview (11/05/2022): Diagnosis of gDM - [...] care for . 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 We will continue to discuss [...] w/ Preservative IM 02/22/2019,02/26/2017 MMR 11/15/1997,04/06/1994 Novel [id number], Injectable 03/01/2009 Polio - OPV 11/15/1997, 4,02/10/1993,1992 [...] Date Last Done Comments DEPRESSION SCREENING 2004 INFLUENZA VACCINE (#1) 2024 0, 02/22/2019, 03/02/2018, Additional history exists COVID-19 VACCINE ( season) 2025 PAP SMEAR 07/07/2025 07/07/2022, 01/29/2016 Adult Td,Tdap [...] PM EST) HCV NON-REACTIV E NON-REACTI VE [facility] Blood 07/07/2022 5:03 PM EST 07/07/2022 9:27 PM EST Caroline Nuñez [facility] BLOOD ORDERABLES Final Resul t [address] [address] * Pap Test (07/07/2022 12:00 AM EST) 07/07/2022 07/08/2022 9:5 1 AM EST Narrative SEE NARRATIVE - 07/13/2022 11:18 AM EST [address] [address] Hr Administrative Assistant: Ree Stafford MD SLD INCLUSION TEACHER Cytology Report FINAL DIAGNOSIS A. PAP SMEAR [...] 59, 66, 68) Note: Testing performed by [employer] Onclarity HR-HPV analysis. Clinical correlation is advised. This HPV test was performed at [facility], [address] [place] [address]. This test has been FDA approved for SurePath cervical cytology specimens. The accuracy and precision of this test for all other specimen sources has been verified in the Cytopathology Laboratory of the [facility] and has not been cleared or approved by the U.S. Food and Drug Administration. Clinical correlation is advised. CLINICAL HISTORY Date of Last Menstrual Period: Not Provided Menstrual History: Other Clinical Conditions: Screening Pap SPECIMEN SOURCE A: PAP SMEAR (SUREPATH) CE Patient Name: FIFI MARISCAL : 1990 (Age: 32) Sex: F Institution: [facility] Location: [facility] Date of Collection: 07/07/2022 Date of Reported: 07/13/2022 11:18 Results to: Caroline Nuñez MSN us Caroline Nuñez CNM CYTOLOGY ORDERABLES Final Result SEE NARRATIVE from Last 3 Months or Most Recently Relevant to Health Maintenance Insurance HEALTH SAFETY NET PARTIAL Member Subscriber Plan / Payer (Ef fective 2022-Present) Name:Fifi Mariscal Relation to Subscriber:Self Name:Fifi Mariscal Payer ID:Not on file Group ID:Not on file Type:Medicaid Address: [address] PPO HEALTH SAFETY NET PARTIAL Member Subscriber Plan / Payer (Ef fective 2022-Present) Name:Mariscal, Fifi Relation to Subscriber:Self Name:MariscalNiiia Payer ID:Not on file Group ID:Not on file Type:Medicaid Address: [address] [place] [address] HEALTH SAFETY NET PARTIAL Member Subscriber Plan / Payer (Ef fective 2022-Present) Name:Fifi Mariscal Relation to Subscriber:Self Name:Mariscal Fifi Payer ID:Not on file Group ID:Not on file Type:Medicaid Address: [address] PPO [place] HEALTH SAFETY NET PARTIAL Member Subscriber Plan / Payer (Ef fective 2022-Present) Name:Fifi Mariscal Relation to Subscriber:Self Name:Fifi Mariscal Payer ID:Not on file Group ID:Not on file Type:Medicaid Address: [address] PPO Member Subscriber Plan / Payer (Ef fective 2022-Present) Name:Fifi Mariscal Relation to Subscriber:Self Name:Fifi Mariscal Payer ID:Not on file Group ID:Not on file Type:Medicaid Address: [address] OUT STATE PPO HEALTH SAFETY NET PARTIAL Member Subscriber Plan / Payer (Ef fective 2022-Present) Name:Fifi Mariscal Relation to Subscriber:Self Name:Fifi Mariscal Payer ID:Not on file Group ID:Not on file Type:Medicaid Address: [address] OUT [facility] PPO HEALTH SAFETY NET PARTIAL Member Subscriber Plan / Payer (Ef fective 2022-Present) Name:Fifi Mariscal Relation to Subscriber:Self Name:MariscalFifi jim Payer ID:Not on file Group ID:Not on file Type:Medicaid Address: [address] PPO HEALTH SAFETY NET PARTIAL Member Subscriber Plan / Payer (Ef fective 2022-Present) Name:MariscalNiiia Relation to Subscriber:Self Name:Mariscal, Fifi Payer ID:Not on file Group ID:Not on file Type:Medicaid Address: [address] [place] [place] [address] HEALTH SAFETY NET PARTIAL Member Subscriber Plan / Payer (Ef fective 2022-Present) Name:Fifi Mariscal Relation to Subscriber:Self Name:Fifi Mariscal Payer ID:Not on file Group ID:Not on file Type:Medicaid Address: [address] PPO Advance Directives For more information, please contact: [phone] (9AM - 5PM [place], Wednesday-Wednesday) * Full Code (Latest Code Status on File) Date Activated Date Inactivated Comments 12/06/2022 8:05 PM Question Answer Comments Code Status Confirmed With: Patient Care Teams Provider Relations Representative Relationship Specialty Start Date End Date Nacho Martin MD [address] [facility] [address] [place] [address] PCP - General 05/20/17 Dona Anderson MD 22 [facility], [facility] [address] [place] [address] [email or web address] Historical LMR Provider 03/04/17 Additional Source Comments The information contained in this document represents components of the legal health record. It is not the complete legal health record.[facility]
== END 2025-01-24 11:25 | disposition home or self-care (01) ==
LOC: HO.HOS 10:29
PROVIDERS: Visit Provider Orthopaedic Surgery
DX: S60.222A Contusion of left hand, initial encounter (principal); M25.532 Pain in left wrist
CPT/HCPCS: 99203

== ENCOUNTER → 2025-01-24 10:30 | Outpatient (BNV) | payer MEDICAID, SELFPAY | PROVIDERS: Visit Provider Radiology Diagnostic Radiology | DX: S63.392A Traumatic rupture of other ligament of left wrist, initial encounter (principal) | CPT/HCPCS: 73100; 73110 ==

== ENCOUNTER 2025-01-24 10:50 | Outpatient (REF) | payer MEDICAID, SELFPAY ==
--- NOTE | ~2025-01-24 | XR_ITS ---
EXAMINATION: XR WRIST, LEFT CLINICAL INFORMATION: M25.532 - Pain in left wrist COMPARISON: None available. TECHNIQUE: PA, lateral, and oblique views of the left wrist. FINDINGS: The scapholunate interval measures 4-5 mm which is widened. No fracture line is seen. No degenerative changes are noted. XR/XR wrist LT w scaphoid IMPRESSION: Scapholunate joint space widening is consistent with a scapholunate ligament tear. There is no DISI deformity. Electronically signed by: Bull Hernandez MD 01/24/2025 10:41 AM EDT
--- NOTE | ~2025-01-24 | XR_ITS ---
EXAMINATION: XR WRIST, bilateral CLINICAL INFORMATION: M25.532 - Pain in left wrist COMPARISON: Same day x-ray and January 13, 2025 TECHNIQUE: Frontal view bilateral wrists. FINDINGS: Widening of the left scapholunate joint space evident on the earlier x-ray is less apparent on the current examination. There is also mild widening of the scapholunate interval on the right wrist. Measures 3.1 mm. XR/XR wrist LT 2V IMPRESSION: Scapholunate distance widening of the left wrist is less apparent on the current x-ray compared with the x-ray performed earlier today. There is mild widening of the right scapholunate distance consistent with tear or partial tear of right scapholunate ligament. Electronically signed by: Bull Hernandez MD 01/24/2025 11:49 AM EDT
== END 2025-01-24 10:51 | disposition home or self-care (01) ==
LOC: HO.HOSX 10:50
PROVIDERS: Visit Provider Orthopaedic Surgery
DX: S60.222A Contusion of left hand, initial encounter (principal); W10.8XXA Fall (on) (from) other stairs and steps, initial encounter
CPT/HCPCS: 73100; 73110; 99202

== ENCOUNTER → 2025-01-26 14:44 | Outpatient (BNV) | payer MEDICAID, SELFPAY | PROVIDERS: Visit Provider Radiology Diagnostic Radiology | DX: S63.512A Sprain of carpal joint of left wrist, initial encounter (principal) | CPT/HCPCS: 73221 ==

== ENCOUNTER 2025-01-26 14:45 | Outpatient (REF) | payer MEDICAID, SELFPAY ==
--- NOTE | ~2025-01-26 | MR_ITS ---
EXAM: MRI left wrist without contrast TECHNIQUE: Multiplanar - multisequence imaging through an upper extremity joint was performed without contrast. INDICATION: Dorsal and snuffbox pain of the left wrist after falling down stairs PRIOR: X-rays from 2 days ago demonstrating scapholunate joint space widening FINDINGS: Triangular fibrocartilage complex: There is fraying and partial-thickness perforation on the carpal side of the triangular fibrocartilage near the sigmoid notch of radius. Intrinsic wrist ligaments: There is diastases of the scapholunate joint which measures 2.4 mm wide. There is high intermediate signal tracking between scapholunate ligament and the generalized thickening of the ligament concerning for a tear. The lunotriquetral ligament is grossly intact. Extensor compartments: There is trace fluid in the tendon sheath of the fourth extensor compartment. There is linear fluid signal along the radial side of the extensor carpi ulnaris tendon in the region of the distal ulna and proximal row of the carpus. Flexor tendons: Flexor tendons are intact and unremarkable. Carpal tunnel and Guyon's canal: Median nerve appears mildly enlarged with increased signal on fluid since he sequences in the carpal tunnel. However, there is no edema in the thenar muscle group. Gyuon canal structures are unremarkable. Bones/Marrow: Bone edema is present in the base of the second metacarpal. There is also edema in the adjacent soft tissues. Fracture line is not clearly evident. Scapholunate angle is increased measuring 80 degrees. (wnl <60 deg) Scaphocapitate angle is 27 degrees (normally less than 30 degrees). Soft tissues: There is no muscle edema, fatty streaking, or superficial soft tissue edema. There are no cystic lesions. MR/MR wrist LT wo con IMPRESSION: Scapholunate ligament tear. Scapholunate angle is increased consistent with scapholunate dissociation. Scaphocapitate angle is upper range of normal limits. This raises question early changes of DISI deformity, but is not diagnostic. Bone bruise involving the base of the second metacarpal. Partial tear of the extensor carpi ulnaris tendon in the region of the distal ulna. Possible median nerve impingement. The nerve appears enlarged with increased signal in the carpal tunnel. However, there is no evidence of denervation edema in the thenar muscle group. Electronically signed by: Bull Hernandez MD 01/26/2025 03:46 PM EDT RP
--- OUTSIDE RECORDS SUMMARY | 2025-01-26 17:28 | XMS_ITS | Encounter Summary ---
Author Organization [facility] Address [address] [place] [address] Phone Care Team Providers Care Floor Sanding Machine Operator Name Role Phone Dona Anderson MD Unavailable Nacho Martin MD Primary Care Provider [phone] Reason for Referral * Consultation (Within 3 days (urgent)) - Closed Specialty Diagnoses / Procedures Referred By Valery t Referred To Contact Rhonda Ray CNM [address] [place] [address] Phone: tel: fax: [email or web address] [facility] [address] [place] [address] Phone: tel: Referral ID Status Reason Start Date Expiration Date Visits Re quested Visits Authorized [id number] Closed 12/04/2022 12/05/2023 1 1 Encounter Details Date Type Department Care Team (Late st Contact Info) Description 12/04/2022 Telephone [facility] Obstetrics - Virtual Department [address] [place] [address] Rhonda Ray CNM [address] [phone] Social History Tobacco Use Types Packs/Day Years Used Date Smoking Tobacco: Never Smokeless Tobacco: Never Alcohol Use Standard Drinks/Week Comments Not Currently 0 (1 standard drink = 0.6 oz pur e alcohol) Occ Education Answer Date Recorded Are you interested in more education? Not on nacny e 09/11/2022 Are you concerned about learning? [...] Associated Diagnoses Order Schedule Ambulatory referral to [facility] Sleep Medicine Outpatient Referral Routine Ordered: 12/04/2022 documented as of this encounter Visit Diagnoses Not on filedocumented in this encounter Care Teams Floor Sanding Machine Operator Relationship Specialty Start Date End Date Nacho Martin MD [address] [place] [address] [phone] [email or web address] PCP - General 05/20/17 Dona Anderson MD [address] [place] [address] [email or web address] Historical LMR Provider 03/04/17 documented as of this encounter Additional Source Comments The information contained in this document represents components of the legal health record. It is not the complete legal health record.[facility]
--- OUTSIDE RECORDS SUMMARY | 2025-01-26 17:28 | XMS_ITS | Clinical Summary ---
Author Organization [facility] Address [address] [place] [address] Phone Care Team Providers Care Plant Protection Officer Name Role Phone Dona Anderson MD Unavailable Nacho Martin MD Primary Care Provider [phone] Allergies Active Allergy Reactions Criticality Noted Date [...] trimester 12/06/2022 Overview (12/14/2022): Pt transferred to [facility] and having IOL at 34w for severe features & ?partial placental abruption. Will likely return to [facility] for and [facility] for PPV 2x wkly HELLP labs Immediate [...] 35wks she will need to deliver at [facility] -She will need to come back to [...] trimester 12/04/2022 Gestational diabetes mellitus (GDM) in [facility] 11/05/2022 Overview (11/05/2022): Diagnosis of gDM - [...] of care for . 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 We will continue to [...] w/ Preservative IM 02/22/2019,02/26/2017 MMR 11/15/1997,04/06/1994 Novel [id number], Injectable 03/01/2009 Polio - OPV 11/15/1997, 4,02/10/1993,1992 [...] PM EST) HCV NON-REACTIV E NON-REACTI VE [facility] Blood 07/07/2022 5:03 PM EST 07/07/2022 9:27 PM EST Caroline Nuñez [facility] BLOOD ORDERABLES Final Resul t [address] [address] * Pap Test (07/07/2022 12:00 AM EST) 07/07/2022 07/08/2022 9:5 1 AM EST Narrative SEE NARRATIVE - 07/13/2022 11:18 AM EST [address] [address] Tableau Report Developer: Ree Stafford MD BAND SPLITTER Cytology Report FINAL DIAGNOSIS A. PAP SMEAR [...] 59, 66, 68) Note: Testing performed by [employer] Onclarity HR-HPV analysis. Clinical correlation is advised. This HPV test was performed at [facility], [address] [place] [address]. This test has been FDA approved for SurePath cervical cytology specimens. The accuracy and precision of this test for all other specimen sources has been verified in the Cytopathology Laboratory of the [facility] and has not been cleared or approved by the U.S. Food and Drug Administration. Clinical correlation is advised. CLINICAL HISTORY Date of Last Menstrual Period: Not Provided Menstrual History: Other Clinical Conditions: Screening Pap SPECIMEN SOURCE A: PAP SMEAR (SUREPATH) CE Patient Name: FIFI MARISCAL : 1990 (Age: 32) Sex: F Institution: [facility] Location: [facility] Date of Collection: 07/07/2022 Date [...] file Group ID:Not on file Type:Medicaid Address: [address] PPO HEALTH SAFETY NET PARTIAL Member Subscriber Plan / Payer (Ef fective 2022-Present) Name:Mariscal, Fifi Relation to Subscriber:Self Name:MariscalNiiia Payer ID:Not on file Group ID:Not on file Type:Medicaid Address: [address] [place] [address] HEALTH SAFETY NET PARTIAL Member Subscriber Plan / Payer (Ef fective 2022-Present) Name:Fifi Mariscal Relation to Subscriber:Self Name:Mariscal Iffi Payer ID:Not on file Group ID:Not on file Type:Medicaid Address: [address] PPO [place] HEALTH SAFETY NET PARTIAL Member Subscriber Plan / Payer (Ef fective 2022-Present) Name:Fifi Mariscal Relation to Subscriber:Self Name:Fifi Mariscal Payer ID:Not on file Group ID:Not on file Type:Medicaid Address: [address] PPO Member Subscriber Plan / Payer (Ef fective 2022-Present) Name:Fifi Mariscal Relation to Subscriber:Self Name:Fifi Mariscal Payer ID:Not on file Group ID:Not on file Type:Medicaid Address: [address] OUT STATE PPO HEALTH SAFETY NET PARTIAL Member Subscriber Plan / Payer (Ef fective 2022-Present) Name:Fifi Mariscal Relation to Subscriber:Self Name:Fifi Mariscal Payer ID:Not on file Group ID:Not on file Type:Medicaid Address: [address] OUT [facility] PPO HEALTH SAFETY NET PARTIAL Member Subscriber Plan / Payer (Ef fective 2022-Present) Name:Fifi Mariscal Relation to Subscriber:Self Name:MariscalFifi jim Payer ID:Not on file Group ID:Not on file Type:Medicaid Address: [address] PPO HEALTH SAFETY NET PARTIAL Member Subscriber Plan / Payer (Ef fective 2022-Present) Name:MariscalNiiia Relation to Subscriber:Self Name:Mariscal, Fifi Payer ID:Not on file Group ID:Not on file Type:Medicaid Address: [address] [place] [place] [address] HEALTH SAFETY NET PARTIAL Member Subscriber Plan / Payer (Ef fective 2022-Present) Name:Fifi Mariscal Relation to Subscriber:Self Name:Fifi Mariscal Payer ID:Not on file Group ID:Not on file Type:Medicaid Address: [address] PPO Advance Directives For more information, please contact: [phone] (9AM - 5PM [place]lyn/[place], Wednesday-Wednesday) * Full Code (Latest Code Status on File) Date Activated Date Inactivated Comments 12/06/2022 8:05 PM Question Answer Comments Code Status Confirmed With: Patient Care Teams Plant Protection Officer Relationship Specialty Start Date End Date Nacho Martin MD 230 [facility] [address] [place] [address] [email or web address] PCP - General 05/20/17 Dona Anderson MD 22 [facility], [email or web address] [address] [place] [address] [email or web address] Historical LMR Provider 03/04/17 Additional Source Comments The information contained in this document represents components of the legal health record. It is not the complete legal health record.[facility]
== END 2025-01-26 14:46 | disposition home or self-care (01) ==
LOC: HO.MRI 14:45
PROVIDERS: Visit Provider Orthopaedic Surgery
DX: M25.532 Pain in left wrist (principal)
CPT/HCPCS: 73221

== ENCOUNTER 2025-01-30 12:57 | Outpatient (AMB) | payer MEDICAID, SELFPAY ==
--- NOTE | 2025-01-30 13:01 | A.OFFVIS_ITS ---
Vital Signs 01/30/25 13:07 Height 5 ft 1 in Weight 215 lb BMI 40.6 Handedness Right Intake Visit Reasons: OV-Closed fracture of scaphoid of Lt wrist MRI rev Intake Note: Brianna 34 year old right hand dominant woman who presents today for her MRI review of left wrist. At her last visit an MRI of the left wrist was ordered to evaluate for possible scapholunate ligament injury. She was also given a Velcro wrist brace to wear like a cast until this follow up. Patient expresses she has been working on gentle ROM finger activities in her brace and feels fine. Says she mainly her pain in the left index finger and left wrist when she has to type at work. Denies numbness and tingling. Allergies diphenhydramine (From BENADRYL) Allergy (Unknown, Verified 01/30/25 13:06) HYPER AND SHAKING HPI HPI OV-Closed fracture of scaphoid of Lt wrist MRI rev: Details: Brianna is a 34 year old right hand dominant woman who returns for an MRI review of her left wrist, S/P fall, DOI: 01/14/25. She complains of pain in her left 2nd MCP joint & wrist, worse with some ROM or activities. She says overall she is fine , and most of her pain occurs when typing on a computer at work. She denies any numbness or tingling. She fell off of her basement stairs, as there was no railing at the time in her new house. 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 Physical Exam Vital Signs: BMI result Body Mass Index 40.6 Extrem Other: Evaluation of Left Upper Extremity: The patient is alert, oriented, and in no acute distress Neuro: Median, Ulnar, Radial nerves motor and sensory intact and sensation is normal to the tips of all digits Vascular: Cap refill brisk ROM: She can make a fist and extend all her digits, with some stiffness after wearing her splint Most tender over the 2nd MCP joint Tender over the dorsal aspect of her wrist Mild snuffbox tenderness No tenderness over the scaphoid tubercle Radiographs: 3 views of the left wrist & scaphoid from 01/24/25 were reviewed by me today in clinic. They show a possible non-displaced scaphoid fracture, involving the distal third, there is also some widening of the scapholunate interval of ~3.4mm. Interestingly Left hand pencil smoked meat preparer view taken and reviewed today. This did not show any widening bilaterally. Left wrist MRI: FINDINGS: Triangular fibrocartilage complex: There is fraying and partial-thickness perforation on the carpal side of the triangular fibrocartilage near the sigmoid notch of radius. Intrinsic wrist ligaments: There is diastases of the scapholunate joint which measures 2.4 mm wide. There is high intermediate signal tracking between scapholunate ligament and the generalized thickening of the ligament concerning for a tear. The lunotriquetral ligament is grossly intact. Extensor compartments: There is trace fluid in the tendon sheath of the fourth extensor compartment. There is linear fluid signal along the radial side of the extensor carpi ulnaris tendon in the region of the distal ulna and proximal row of the carpus. Flexor tendons: Flexor tendons are intact and unremarkable. Carpal tunnel and Guyon's canal: Median nerve appears mildly enlarged with increased signal on fluid since he sequences in the carpal tunnel. However, there is no edema in the thenar muscle group. Gyuon canal structures are unremarkable. Bones/Marrow: Bone edema is present in the base of the second metacarpal. There is also edema in the adjacent soft tissues. Fracture line is not clearly evident. Scapholunate angle is increased measuring 80 degrees. (wnl <60 deg) Scaphocapitate angle is 27 degrees (normally less than 30 degrees). Soft tissues: There is no muscle edema, fatty streaking, or superficial soft tissue edema. There are no cystic lesions. IMPRESSION: Scapholunate ligament tear. Scapholunate angle is increased consistent with scapholunate dissociation. Scaphocapitate angle is upper range of normal limits. This raises question early changes of DISI deformity, but is not diagnostic. Bone bruise involving the base of the second metacarpal. Partial tear of the extensor carpi ulnaris tendon in the region of the distal ulna. Possible median nerve impingement. The nerve appears enlarged with increased signal in the carpal tunnel. However, there is no evidence of denervation edema in the thenar muscle group. Electronically signed by: Bull Hernandez MD 01/26/2025 Assessment & Plan Assessment & Plan (1) Left scapholunate ligament tear: Code(s): S63.8X2A - Sprain of other part of left wrist and hand, initial encounter Category: Medical (2) Contusion of left hand: Code(s): S60.222A - Contusion of left hand, initial encounter Category: Medical (3) Left wrist pain: Code(s): M25.532 - Pain in left wrist Category: Medical Plan Assessment & Plan: 1. Left scapholunate ligament tear 2. Left 2nd MCP joint contusion vs possible fracture, S/P fall DOI: 01/14/25 I educated her about these conditions I discussed operative and non-operative treatment options The patient would like to proceed with surgery The risks and benefits of operative treatment were discussed with the patient and the patient wishes to proceed with surgery. These risks include, but are not limited to risk of damage to blood vessels, nerves, tendons, infection, recurrence, incomplete relief of preoperative symptoms, persistent pain, possible need for further surgery and the risks associated with regional blocks and anesthesia. The plan is to take the patient to the operating room sometime on 02/01/25 for the following procedures: 1. Left wrist ORIF & scapholunate ligament repair, under general All of the preoperative paperwork including the consent was reviewed today. All the patient's questions were answered. The patient understands that they will be contacted by our collections analyst soon to schedule this procedure She denies Diabetes, blood thinners, asthma, heart, lung, kidney issues Please note that greater than 60 minutes was spent with this patient going over the history, evaluating the patient and radiographs, formulating possible treatment options, discussing them with the patient, and documenting the visit. Scribed for Molly Rose MD by Eric Leon medical receptionist medical assistant, on 01/30/25 at 1:30 PM, EST. Coding Level of Care Code Est Pt Level 5 (34013) Diagnoses Left scapholunate ligament tear S63.8X2A Contusion of left hand S60.222A Left wrist pain M25.532
[2025-01-30 13:07] VITALS: BMI 40.6
--- OUTSIDE RECORDS SUMMARY | 2025-01-30 16:55 | XMS_ITS | Encounter Summary ---
Author Organization [facility] Address [address] [place] [address] Phone Care Team Providers Care Supervisor Fur Dressing Name Role Phone Dona Anderson MD Unavailable Nacho Martin MD Primary Care Provider [phone] Reason for Referral * Consultation (Within 3 days (urgent)) - Closed Specialty Diagnoses / Procedures Referred By Valery t Referred To Contact Rhonda Ray CNM [address] [place] [address] Phone: tel: fax: [email or web address] [address] [place] [address] Phone: tel: Referral ID Status Reason Start Date Expiration Date Visits Re quested Visits Authorized [id number] Closed 12/04/2022 12/05/2023 1 1 Encounter Details Date Type Department Care Team (Late st Contact Info) Description 12/04/2022 Telephone [facility] Obstetrics - Virtual Department [address] [place] [address] Rhonda Ray CNM [address] [id number] Social History Tobacco Use Types Packs/Day Years [...] Associated Diagnoses Order Schedule Ambulatory referral to [facility] Sleep Medicine Outpatient Referral Routine Ordered: 12/04/2022 documented as of this encounter Visit Diagnoses Not on filedocumented in this encounter Care Teams Supervisor Fur Dressing Relationship Specialty Start Date End Date Nacho Martin MD [address] [place] [address] [phone] [email or web address] PCP - General 05/20/17 Dona Anderson MD [address] [phone] [email or web address] Historical LMR Provider 03/04/17 documented as of this encounter Additional Source Comments The information contained in this document represents components of the legal health record. It is not the complete legal health record.[facility]
--- OUTSIDE RECORDS SUMMARY | 2025-01-30 16:55 | XMS_ITS | Clinical Summary ---
Author Organization [facility] Address [address] [place] [phone] Phone Care Team Providers Care Glaze Handler Name Role Phone Dona Anderson MD Unavailable Nacho Martin MD Primary Care Provider [phone] Allergies Active Allergy Reactions Criticality Noted Date [...] trimester 12/06/2022 Overview (12/14/2022): [place] [facility] and having IOL at 34w for severe features & ?partial placental abruption. Will likely return to [facility] for and [facility] for PPV 2x wkly HELLP labs [...] 35wks she will need to deliver at [facility] -She will need to come back to [...] trimester 12/04/2022 Gestational diabetes mellitus (GDM) in [facility] 11/05/2022 Overview (11/05/2022): Diagnosis [...] care for . 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 Assessment & Plan (11/19/2022 9:38 [...] encouraged Fifi to continue communicating with her broadcast program director as progresses. We will continue to discuss [...] neg carrier screening. She is having a constitution party to learn predicted sex this weekend. BP [...] w/ Preservative IM 02/22/2019,02/26/2017 MMR 11/15/1997,04/06/1994 Novel [id number], Injectable 03/01/2009 Polio - OPV 11/15/1997, 4,02/10/1993,1992 [...] PM EST) HCV NON-REACTIV E NON-REACTI VE [facility] Blood 07/07/2022 5:03 PM EST 07/07/2022 9:27 PM EST Caroline Nuñez [facility] BLOOD ORDERABLES Final Resul t [address] [address] * Pap Test (07/07/2022 12:00 AM EST) 07/07/2022 07/08/2022 9:5 1 AM EST Narrative SEE NARRATIVE - 07/13/2022 11:18 AM EST [address] [address] Adoption Agent: Ree Stafford MD PHYSICAL THERAPY TECHNICIAN Cytology Report FINAL DIAGNOSIS A. PAP SMEAR [...] 59, 66, 68) Note: Testing performed by [employer] ([employer]) Onclarity HR-HPV analysis. Clinical correlation is advised. This HPV test was performed at [facility], [address] [place] [address]. This test has been FDA approved for [facility] cervical cytology specimens. The accuracy and precision of this test for all other specimen sources has been verified in the Cytopathology Laboratory of the [facility] and has not been cleared or approved by the U.S. Food and Drug Administration. Clinical correlation is advised. CLINICAL HISTORY Date of Last Menstrual Period: Not Provided Menstrual History: Other Clinical Conditions: Screening Pap SPECIMEN SOURCE A: PAP SMEAR (SUREPATH) CE Patient Name: FIFI MARISCAL : 1990 (Age: 32) Sex: F Institution: [facility] Location: [facility] Date of Collection: 07/07/2022 Date of [...] file Group ID:Not on file Type:Medicaid Address: [address] PPO HEALTH SAFETY NET PARTIAL Member Subscriber Plan / Payer (Ef fective 2022-Present) Name:Mariscal, Fifi Relation to Subscriber:Self Name:MariscalNiiia Payer ID:Not on file Group ID:Not on file Type:Medicaid Address: [address] [place] [address] HEALTH SAFETY NET PARTIAL Member Subscriber Plan / Payer (Ef fective 2022-Present) Name:Fifi Mariscal Relation to Subscriber:Self Name:Mariscal Fifi Payer ID:Not on file Group ID:Not on file Type:Medicaid Address: [address] PPO [place] PARTIAL Member Subscriber Plan / Payer (Ef fective 2022-Present) Name:Fifi Mariscal Relation to Subscriber:Self Name:Fifi Mariscal Payer ID:Not on file Group ID:Not on file Type:Medicaid Address: [address] PPO Member Subscriber Plan / Payer (Ef fective 2022-Present) Name:Fifi Mariscal Relation to Subscriber:Self Name:Fifi Mariscal Payer ID:Not on file Group ID:Not on file Type:Medicaid Address: [address] [place] PPO HEALTH SAFETY NET PARTIAL Member Subscriber Plan / Payer (Ef fective 2022-Present) Name:Fifi Mariscal Relation to Subscriber:Self Name:Fifi Mariscal Payer ID:Not on file Group ID:Not on file Type:Medicaid Address: [address] OUT [facility] PPO HEALTH SAFETY NET PARTIAL Member Subscriber Plan / Payer (Ef fective 2022-Present) Name:Fifi Mariscal Relation to Subscriber:Self Name:MariscalFifi jim Payer ID:Not on file Group ID:Not on file Type:Medicaid Address: [address] PPO HEALTH SAFETY NET PARTIAL Member Subscriber Plan / Payer (Ef fective 2022-Present) Name:MariscalNiiia Relation to Subscriber:Self Name:Mariscal, Fifi Payer ID:Not on file Group ID:Not on file Type:Medicaid Address: [address] [place] [address] HEALTH SAFETY NET PARTIAL Member Subscriber Plan / Payer (Ef fective 2022-Present) Name:Fifi Mariscal Relation to Subscriber:Self Name:Fifi Mariscal Payer ID:Not on file Group ID:Not on file Type:Medicaid Address: [address] PPO Advance Directives For more information, please contact: [phone] (9AM - 5PM [place], Wednesday-Wednesday) * Full Code (Latest Code Status on File) Date Activated Date Inactivated Comments 12/06/2022 8:05 PM Question Answer Comments Code Status Confirmed With: Patient Care Teams Glaze Handler Relationship Specialty Start Date End Date Nacho Martin MD [address] [facility] [address] [place] [phone] [email or web address] PCP - General 05/20/17 Dona Anderson MD [address] [facility] [address] [place] [address] [email or web address] Historical LMR Provider 03/04/17 Additional Source Comments The information contained in this document represents components of the legal health record. It is not the complete legal health record.[facility]
== END 2025-01-30 14:20 | disposition home or self-care (01) ==
LOC: HO.HOS 12:58
PROVIDERS: PCP Physician Assistant; Visit Provider Orthopaedic Surgery
DX: S63.8X2A Sprain of other part of left wrist and hand, initial encounter (principal); S60.222A Contusion of left hand, initial encounter; M25.532 Pain in left wrist
CPT/HCPCS: 99215

== ENCOUNTER → 2025-01-30 12:57 | Outpatient (BNVA) | payer MEDICAID, SELFPAY | PROVIDERS: PCP Physician Assistant; Visit Provider Orthopaedic Surgery | DX: M25.532 Pain in left wrist (principal); S63.8X2A Sprain of other part of left wrist and hand, initial encounter; S60.222A Contusion of left hand, initial encounter | CPT/HCPCS: 99212 ==

== ENCOUNTER 2025-02-01 10:02 | Day surgery (SDC) | payer MEDICAID, SELFPAY ==
--- NOTE | 2025-01-31 09:34 | HO.ANESPROP2 ---
Documented by User: Casie Ruiz NP 01/31/25 09:34 HPI - Anesthesia Eval Consult details Narrative: 34 yr old female for left scaphoid ORIF PMFSH Active Problems Active Problems: All Active Problems (Updated 01/30/25 @ 13:14 by Eric Leon) Left scapholunate ligament tear (Acute) Left wrist pain (Acute) Contusion of left hand (Acute) Social History Social History Alcohol intake: current Alcohol intake frequency: holidays/special occasions only Comment: socially Patient Tobacco Use Status: Never used Tobacco Use of substances other than those prescribed or required for medical reasons: Yes Advance Directives: No Advance Directives Information Provided: Yes Current occupational status: employed 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 Allergies Allergy/AdvReac Type Severity Reaction Status Date / Time diphenhydramine (From Allergy Unknown HYPER AND Verified 01/30/25 13:06 BENADRYL) SHAKING Home Medications ?Medication ?Instructions ?Recorded ?Confirmed ?Last Taken ?Type escitalopram oxalate 10 mg tablet 15 mg PO DAILY 01/30/25 Unknown History Documented by User: Virginie Schultz MD 02/01/25 12:18 PMFSH Family History Family history of problems with anesthesia: No Surgical History History of Problems with Anesthesia: No Social History Social History Alcohol intake: current Alcohol intake frequency: holidays/special occasions only Comment: socially Patient Tobacco Use Status: Never used Tobacco Use of substances other than those prescribed or required for medical reasons: Yes Advance Directives: No Advance Directives Information Provided: Yes Current occupational status: employed 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 Allergies Allergy/AdvReac Type Severity Reaction Status Date / Time diphenhydramine (From Allergy Unknown HYPER AND Verified 01/30/25 13:06 BENADRYL) SHAKING Home Medications ?Medication ?Instructions ?Recorded ?Confirmed ?Last Taken ?Type escitalopram oxalate 10 mg tablet 15 mg PO DAILY 01/30/25 Unknown History Exam Airway Mallampati Class: II TM Dist: >3cm Neck ROM: Full Heart: rrr Lungs: cta Assessment and Plan Assessment Anesthesia Assessment: Anesthesia Plan Discussed and Chart Reviewed Final Anesthetic Review Family History of Problems with Anesthesia: No History of Problems with Anesthesia: No NPO: Yes ASA Class: II (morbid obesity's ) Final Preanesthetic Review: No Changes in Pt Med Stat, Meds/Allgs Chart Reviewed, Consent Obtained/Reviewed and Anes Risks/Benef Reviewed Patient Risk: Intermediate Procedure Risk: Intermediate Anesthetic Plan Anesthetic Plan: GA, Regional Block and Agree w/ Assess. and Plan Disposition: Standard PACU
[2025-02-01] VITALS (7 sets, daily range): BP systolic 129–145; BP diastolic 72–98; PULSE 82–105; RESP 18; TEMP 36.2–36.6; O2SAT 95–97; BMI 41.1
--- NOTE | ~2025-02-01 | FL_ITS ---
EXAMINATION: FL GUIDANCE ONLY HISTORY: ORIF COMPARISON: None available. TECHNIQUE: Fluoroscopy time: 165.44 seconds. Cumulative Dose: 5.9970 mGy. DAP: 0.3612 mGym2 Images: 7. FINDINGS: Fluoroscopic spot films of the left wrist demonstrate placement of multiple pins. FL/FL guidance in OR IMPRESSION: Fluoroscopy during procedure. Please see procedure report for additional information. Electronically signed by: Jack Damon MD 02/01/2025 03:49 PM EDT
--- NOTE | 2025-02-01 10:24 | P.OP_ITS ---
Operative Note Operative Note Date of Service: 02/01/25 Narrative: Operative Note Narrative: Preop diagnosis: 1. Left scapholunate ligament tear with instability Postop diagnosis: Same Procedure: 1. Left wrist open reduction of the scapholunate joint with fixation 2. Left scapholunate ligament repair Surgeon: Molly Rose MD Cnc Mechanic: Keith BILLS Anesthesia: General Anesthesia plus regional block Findings: Interestingly, visually the dorsal and proximal scapholunate intercarpal ligament appeared to be intact however functionally it was not. Radiographically we can see the gap between the scaphoid and the lunate increase with axial loading and decrease the traction, and visually we can see the scaphoid move into flexion with axial loading. Implants: 0.054 K-wires x2 Tourniquet time: 79 minutes EBL: 5.0 ml Specimen: None Drains: None Complications: None Disposition: Brought to the recovery room in stable condition Plan: Follow-up in 10-14 days for wound check, pre clinic radiographs trauma suture removal and placement in a short-arm cast Anticipate K-wire removal at 6 weeks Indications: The patient is a 34 year old woman with with a left wrist scapholunate ligament tear with instability, confirmed on MRI . The risks and benefits of operative treatment, including but not limited to risk of damage to blood vessels, nerves, tendons, infection, recurrence, persistent pain or numbness, incomplete resolution of preoperative symptoms, or need for further surgery were discussed with the patient and they wished to proceed with surgery. Procedure: Once consent was obtained patient was brought back to the operating suite and placed in the operating table in a supine position. A regional block was performed by the anesthesia team. Perioperative antibiotics and anesthesia was administered by the anesthesia team. A tourniquet was applied to the proximal aspect of the left upper extremity and the limb was prepped and draped in a standard surgical fashion. The limb was elevated exsanguinated with [facility] bandage and the tourniquet inflated to 250 mm of mercury for a total tourniquet time of 79 minutes. The FluoroScan was used during the case to assess our reduction and placement of all implants. I made a 6 cm longitudinal incision centered over the dorsal aspect of the patient's left wrist extending essentially from the base of the 3rd metacarpal to just ulnar to Chloé's tubercle. The incision was made through the skin the subcutaneous tissues using a 15. Blade. I then dissected down to the level of the extensor retinaculum. I opened the distal aspect of the extensor retinaculum longitudinally on the radial aspect of the 4th dorsal compartment. The extensor tendons of the 4th dorsal compartment were then retracted ulnarly. The EPL tendon was identified and left within the 3rd dorsal compartment and protected during the case. The distal aspect of the posterior interosseous nerve was identified and a neurectomy performed to decrease pain in the wrist. I then carefully made a longitudinal incision extending from the dorsal aspect of the distal radius distally over the capsular ligamentous tissues in the direction of the 3rd metacarpal. Care was taken to assure that there was no penetration through the capsular ligamentous tissues that would injure the articular cartilage or the intercarpal ligament of the wrist joint. We created radial and ulnar flaps. At this point we can visualize the scapholunate interval as well as the head of the capitate. Visually, the scapholunate intercarpal ligament appeared to be intact both dorsally and proximally. I did however see a small amount of flexion in the scaphoid with axial loading the appeared to be independent from the lunate. Fluoroscopically I did see the gap between the scaphoid in the lunate with axial loading. Applying traction across the wrist joint did appear to reduce the scaphoid and the lunate. I placed a 0.054 K-wire into the dorsal aspect of the scaphoid to use as a joystick. After bringing the scaphoid out of flexion using the joystick, I passed a 0.054 K-wire transversely through the radial aspect of the scaphoid and passing across the scapholunate interval and into the lunate. I passed a 2nd 0.054 K-wire through the radial aspect of the scaphoid across the scaphoid capitate joint and into the capitate. I was satisfied with our reduction and placement of all implants on fluoroscopic images. The pins were bent cut short had pin caps applied. I then turned my attention to the repair of the scapholunate ligament. Again, the scapholunate ligament appeared to be intact visually both dorsally and proximally. I thus elected to reef or tighten up the ligament using some 4-0 FiberWire suture. Once satisfied with our repair, the capsular ligamentous tissues were reapproximated with some 4-0 FiberWire suture. . The EPL tendon was visualized within the 3rd dorsal compartment and its mobility visualized with some thumb motion. The wound was copiously irrigated with normal saline. At this point the tourniquet was deflated and hemostasis obtained with a brief period of local pressure and bipolar electrocautery. The wound was copiously irrigated with normal saline. The subcutaneous layer was closed with 4-0 Vicryl suture, and the skin edges were reapproximated with 5-0 nylon suture. The wound was infiltrated with some 1% lidocaine with epinephrine for postop pain control and a sterile dressing and dorsal splint was applied. The patient appears to have tolerated the procedure well and with no complications. All digits were well vascularized conclusion of the case.
[2025-02-01 11:03] LABS: UPreg QC Valid YES
--- NOTE | 2025-02-01 13:02 | MHC.SHP ---
Pre-Procedural Eval Section A - 24 Hr Update-Section A only Date of Service: 02/01/25 The patient is an INPATIENT: No Changes since office visit: No Cold of Flu in the past 2 weeks, No New Medical Problems, No Changes in Medication and No Patient answered all questions The patient has been examined within 24 hours of the surgical procedure. The History & Physical has been completed within 30 days and I have reviewed it.: Yes Section B - Complete if H&P > 30 days Chief Complaint: Sprain of other part of left wrist, SLIL tear Allergies: Allergies Allergy/AdvReac Type Severity Reaction Status Date / Time diphenhydramine (From Allergy Unknown HYPER AND Verified 01/30/25 13:06 BENADRYL) SHAKING Plan I have reviewed the history and physical and performed a pertinent physical examination on my patient. No changes have occurred unless specified. Time Spent With Patient Time: Total time managing care of this patient today ____ minutes.
== END 2025-02-01 16:20 | disposition home or self-care (01) ==
PROVIDERS: Nurse Practitioner; Visit Provider Orthopaedic Surgery
PROC: (CPT 25628; principal; 2025-02-01 12:10)
DX: S63.512A Sprain of carpal joint of left wrist, initial encounter (principal); M24.232 Disorder of ligament, left wrist; M25.532 Pain in left wrist; S60.222A Contusion of left hand, initial encounter; W10.8XXA Fall (on) (from) other stairs and steps, initial encounter; Y93.01 Activity, walking, marching and hiking; Y92.018 Other place in single-family (private) house as the place of occurrence of the external cause; Y99.9 Unspecified external cause status; Z88.8 Allergy status to other drugs, medicaments and biological substances
CPT/HCPCS: 25628; 81025; J0131; J0665; J0690; J1100; J1630; J1885; J2003; J2250; J2405; J2704; J3010

== ENCOUNTER → 2025-02-01 10:02 | Outpatient (BNV) | payer MEDICAID, SELFPAY | PROVIDERS: Visit Provider Orthopaedic Surgery | DX: S63.512A Sprain of carpal joint of left wrist, initial encounter (principal); M25.332 Other instability, left wrist | CPT/HCPCS: 25320 ==

== ENCOUNTER 2025-02-09 14:10 | Outpatient (AMB) | payer MEDICAID, SELFPAY ==
--- NOTE | 2025-02-09 14:11 | MHC.OFFVIS ---
Vital Signs 02/09/25 14:12 Height 5 ft 1 in Weight 217 lb BMI 41.0 Intake Visit Reasons: Splint change per AC Intake Note: Brianna 34 year old right hand dominant woman who presents today post-operatively for a splint change status post Left Scaphoid ORIF, DOS: 02/01/[address] Rose. Patient called the office 02/08/25 reporting her splint was too loose as her swelling has gone down. Patient complains of pain on the dorsal aspect of the hand. She continues taking her pain medication as prescribed. Allergies diphenhydramine (From BENADRYL) Allergy (Unknown, Verified 02/14/25 13:42) HYPER AND SHAKING HPI HPI Splint change per AC: Details: Brianna 34 year old right hand dominant woman who presents today post-operatively for a splint change status post Left scapholunate ligament repair and wrist ORIF, DOS: 02/01/[address] Rose. Patient called the office 02/08/25 reporting her splint was too loose as her swelling has gone down. Patient complains of pain on the dorsal aspect of the hand. She continues taking her pain medication as prescribed. 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 Neuro: Normal sensation of the tips of all digits of the left hand at this time Vascular: Cap refill brisk Pain: Some tenderness to palpation about the dorsal aspect of the left wrist Minimal tenderness to palpation about pin sites or incision sites on left wrist ROM: Patient is able to make a closed fist with the 2nd through 5th digits of the left hand and can extend fully and without difficulty Skin: Well approximated and well healing incision site noted on the dorsal aspect of the left wrist General: No ecchymosis, erythema, or evidence of infection. No drainage from pin sites. Psych: Appears grossly normal Affect normal Attitude cooperative Office Procedures Casting/Splints 59350-[id number] Splint Application Procedure code (CPT) selection complete Results Reviewed Results Reviewed: X-rays obtained in the office today and independently reviewed by me, Keith Dunbar PA-C, demonstrate status post ORIF of the left wrist with scapholunate ligament repair with all orthopedic hardware in place and in satisfactory clinical alignment. Assessment & Plan Assessment & Plan (1) Left scapholunate ligament tear: Code(s): S63.8X2A - Sprain of other part of left wrist and hand, initial encounter Category: Medical Plan 1. Status post left scapholunate ligament repair and wrist ORIF DOS 02/01/2025 Patient appears to be recovering well postoperatively Patient is educated about the typical recovery course At this time, patient is replaced into thumb spica splint Patient is educated on proper splint care and precautions No worrisome signs or symptoms of infection of incision site or orthopedic hardware at this time Patient should follow-up for previously scheduled follow-up appointment, sooner with any acute concerns Coding Level of Care Code Global (67355) Diagnoses Left scapholunate ligament tear S63.8X2A CPT Codes Splint - CPT: 59212-Xaueufv Splint Application ([id number])
[2025-02-09 14:12] VITALS: BMI 41.0
--- OUTSIDE RECORDS SUMMARY | 2025-02-09 15:17 | XMS_ITS | Clinical Summary ---
Author Organization [facility] Address [address] [place] [phone] Phone Care Team Providers Care Car Greaser Name Role Phone Dona Anderson MD Unavailable Nacho Martin MD Primary Care Provider [phone] Allergies Active Allergy Reactions Criticality Noted Date [...] trimester 12/06/2022 Overview (12/14/2022): Pt transferred [place] [facility] and having IOL at 34w for severe features & ?partial placental abruption. Will likely return to [facility] for and [facility] for PPV 2x wkly HELLP labs [...] 35wks she will need to deliver at [facility] -She will need to come back [...] trimester 12/04/2022 Gestational diabetes mellitus (GDM) in [facility] 11/05/2022 Overview (11/05/2022): Diagnosis of [...] care for . 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 We will continue to discuss [...] neg carrier screening. She is having a green party to learn predicted sex this weekend. [...] w/ Preservative IM 02/22/2019,02/26/2017 MMR 11/15/1997,04/06/1994 Novel [id number], Injectable 03/01/2009 Polio - OPV 11/15/1997, 4,02/10/1993,1992 [...] PM EST) HCV NON-REACTIV E NON-REACTI VE [facility] Blood 07/07/2022 5:03 PM EST 07/07/2022 9:27 PM EST Caroline Nuñez [facility] BLOOD ORDERABLES Final Resul t [address] [address] * Pap Test (07/07/2022 12:00 AM EST) 07/07/2022 07/08/2022 9:5 1 AM EST Narrative SEE NARRATIVE - 07/13/2022 11:18 AM EST [address] [address] Jumpbasting Lining Baster: Ree Stafford MD DOCK ATTENDANT Cytology Report FINAL DIAGNOSIS A. PAP SMEAR [...] 59, 66, 68) Note: Testing performed by [employer] [facility] HR-HPV analysis. Clinical correlation is advised. This HPV test was performed at [facility], [address] [place] [address]. This test has been FDA approved for [facility] cervical cytology specimens. The accuracy and precision of this test for all other specimen sources has been verified in the Cytopathology Laboratory of the [facility] and has not been cleared or approved by the U.S. Food and Drug Administration. Clinical correlation is advised. CLINICAL HISTORY Date of Last Menstrual Period: Not Provided Menstrual History: Other Clinical Conditions: Screening Pap SPECIMEN SOURCE A: PAP SMEAR (SUREPATH) CE Patient Name: FIFI MARISCAL : 1990 (Age: 32) Sex: F Institution: [facility] Location: [facility] Date of Collection: 07/07/2022 Date of [...] file Group ID:Not on file Type:Medicaid Address: [address] PPO HEALTH SAFETY NET PARTIAL Member Subscriber Plan / Payer (Ef fective 2022-Present) Name:Mariscal, Fifi Relation to Subscriber:Self Name:MariscalNiiia Payer ID:Not on file Group ID:Not on file Type:Medicaid Address: [address] [place] [address] HEALTH SAFETY NET PARTIAL Member Subscriber Plan / Payer (Ef fective 2022-Present) Name:Fifi Mariscal Relation to Subscriber:Self Name:Mariscal Fifi Payer ID:Not on file Group ID:Not on file Type:Medicaid Address: [address] PPO [place] HEALTH [place]AF[place] NET PARTIAL Member Subscriber Plan / Payer (Ef fective 2022-Present) Name:Fifi Mariscal Relation to Subscriber:Self Name:Fifi Mariscal Payer ID:Not on file Group ID:Not on file Type:Medicaid Address: [address] PPO Member Subscriber Plan / Payer (Ef fective 2022-Present) Name:Fifi Mariscal Relation to Subscriber:Self Name:Fifi Mariscal Payer ID:Not on file Group ID:Not on file Type:Medicaid Address: [address] OUT [place] PPO HEALTH SAFETY NET PARTIAL Member Subscriber Plan / Payer (Ef fective 2022-Present) Name:Fifi Mariscal Relation to Subscriber:Self Name:Fifi Mariscal Payer ID:Not on file Group ID:Not on file Type:Medicaid Address: [address] OUT [facility] PPO HEALTH SAFETY NET PARTIAL Member Subscriber Plan / Payer (Ef fective 2022-Present) Name:Fifi Mariscal Relation to Subscriber:Self Name:MariscalFifi jim Payer ID:Not on file Group ID:Not on file Type:Medicaid Address: [address] PPO HEALTH SAFETY NET PARTIAL Member Subscriber Plan / Payer (Ef fective 2022-Present) Name:MariscalNiiia Relation to Subscriber:Self Name:Mariscal, Fifi Payer ID:Not on file Group ID:Not on file Type:Medicaid Address: [address] [place] [place] [address] HEALTH SAFETY NET PARTIAL Member Subscriber Plan / Payer (Ef fective 2022-Present) Name:Fifi Mariscal Relation to Subscriber:Self Name:Fifi Mariscal Payer ID:Not on file Group ID:Not on file Type:Medicaid Address: [address] PPO Advance Directives For more information, please contact: [phone] (9AM - 5PM [place], Wednesday-Wednesday) * Full Code (Latest Code Status on File) Date Activated Date Inactivated Comments 12/06/2022 8:05 PM Question Answer Comments Code Status Confirmed With: Patient Care Teams Car Greaser Relationship Specialty Start Date End Date Nacho Martin MD [address] [facility] [address] [place] [address] [email or web address] PCP - General 05/20/17 Dona Anderson MD 22 [facility] [address] [place] [address] [email or web address] Historical LMR Provider 03/04/17 Additional Source Comments The information contained in this document represents components of the legal health record. It is not the complete legal health record.[facility]
--- OUTSIDE RECORDS SUMMARY | 2025-02-09 15:17 | XMS_ITS | Encounter Summary ---
Author Organization [facility] Address [address] [place] [phone] Phone Care Team Providers Care Deckhand Sponge Boat Name Role Phone Dona Anderson MD Unavailable Nacho Martin MD Primary Care Provider Reason for Referral * Consultation (Within 3 days (urgent)) - Closed Specialty Diagnoses / Procedures Referred By Valery t Referred To Contact Rhonda Ray CNM [address] [place] [phone] Phone: tel: fax: [email or web address] [facility] [address] [place] [address] Phone: tel: Referral ID Status Reason Start Date Expiration Date Visits Re quested Visits Authorized [id number] Closed 12/04/2022 12/05/2023 1 1 Encounter Details Date Type Department Care Team (Late st Contact Info) Description 12/04/2022 Telephone [facility] Obstetrics - Virtual Department [address] [place] [address] Rhonda Ray CNM [address] [phone] [email or web address] Social History Tobacco Use Types Packs/Day Years [...] Associated Diagnoses Order Schedule Ambulatory referral to [facility] Sleep Medicine Outpatient Referral Routine Ordered: 12/04/2022 documented as of this encounter Visit Diagnoses Not on filedocumented in this encounter Care Teams Deckhand Sponge Boat Relationship Specialty Start Date End Date Nacho Martin MD [address] [place] [address] [phone] [email or web address] PCP - General 05/20/17 Dona Anderson MD [address] [place] [phone] [email or web address] Historical LMR Provider 03/04/17 documented as of this encounter Additional Source Comments The information contained in this document represents components of the legal health record. It is not the complete legal health record.[facility]
== END 2025-02-09 14:55 | disposition home or self-care (01) ==
LOC: HO.HOS 14:11
DX: S63.8X2A Sprain of other part of left wrist and hand, initial encounter (principal)
CPT/HCPCS: 29125; 99024

== ENCOUNTER → 2025-02-09 14:10 | Outpatient (BNVA) | payer MEDICAID, SELFPAY | DX: S63.8X2A Sprain of other part of left wrist and hand, initial encounter (principal) | CPT/HCPCS: 29125; 99212 ==

== ENCOUNTER 2025-02-14 12:19 | Outpatient (REF) | payer MEDICAID, SELFPAY ==
--- NOTE | ~2025-02-14 | XR_ITS ---
EXAMINATION: XR WRIST, LEFT CLINICAL INFORMATION: M25.532 - Pain in left wrist COMPARISON: 01/24/2025 TECHNIQUE: PA, lateral, and oblique views of the left wrist. FINDINGS: Since prior examination, K wires have been placed into scaphoid, one coursing into the lunate and the other into capitate and possibly hamate. There has been mild reduction of the scapholunate distance since the prior. XR/XR wrist LT min 3V IMPRESSION: K wires are placed across scaphoid into the lunate and capitate. There has been narrowing the scapholunate joint space compared to the prior. Electronically signed by: Bull Hernandez MD 02/14/2025 02:00 PM EDT
--- OUTSIDE RECORDS SUMMARY | 2025-02-15 13:54 | XMS_ITS | Encounter Summary ---
Author Organization [facility] Address [address] [place] [address] Phone Care Team Providers Care Senior Process Analyst Name Role Phone Dona Anderson MD Unavailable Nacho Martin MD Primary Care Provider [phone] Reason for Referral * Consultation (Within 3 days (urgent)) - Closed Specialty Diagnoses / Procedures Referred By Valery t Referred To Contact Rhonda Ray CNM [address] [place] [address] Phone: tel: fax: [email or web address] [facility] [address] [place] [address] Phone: tel: Referral ID Status Reason Start Date Expiration Date Visits Re quested Visits Authorized [id number] Closed 12/04/2022 12/05/2023 1 1 Encounter Details Date Type Department Care Team (Late st Contact Info) Description 12/04/2022 Telephone [facility] Obstetrics - Virtual Department [address] [place] [address] Rhonda Ray CNM [address] [phone] Social History Tobacco Use Types Packs/Day Years [...] Associated Diagnoses Order Schedule Ambulatory referral to [facility] Sleep Medicine Outpatient Referral Routine Ordered: 12/04/2022 documented as of this encounter Visit Diagnoses Not on filedocumented in this encounter Care Teams Senior Process Analyst Relationship Specialty Start Date End Date Nacho Martin MD [address] [place] [address] [phone] [email or web address] PCP - General 05/20/17 Dona Anderson MD [address] [place] [address] [email or web address] Historical LMR Provider 03/04/17 documented as of this encounter Additional Source Comments The information contained in this document represents components of the legal health record. It is not the complete legal health record.[facility]
--- OUTSIDE RECORDS SUMMARY | 2025-02-15 13:54 | XMS_ITS | Encounter Summary ---
Author Organization [facility] Address [address] [place] [address] Phone Care Team Providers Care Pre School Teacher Name Role Phone Dona Anderson MD Unavailable Nacho Martin MD Primary Care Provider [phone] Encounter Details Date Type Department Care Team (Late st Contact Info) Description 02/12/2025 [facility] R[facility]ORES [facility] GENERATED External System Generated Encounter [address] [place] [address] Unknown, Unknown, Social History Tobacco Use [...] on filedocumented in this encounter Care Teams Pre School Teacher Relationship Specialty Start Date End Date Nacho Martin MD 230 [facility] [address] [place] [address] [email or web address] PCP - General 05/20/17 Dona Anderson MD [address] [place] [address] [email or web address] Historical LMR Provider 03/04/17 documented as of this encounter Additional Source Comments The information contained in this document represents components of the legal health record. It is not the complete legal health record.[facility]
--- OUTSIDE RECORDS SUMMARY | 2025-02-15 13:54 | XMS_ITS | Clinical Summary ---
Author Organization [facility] Address [address] [place] [address] Phone Care Team Providers Care Information Security Consultant Name Role Phone Dona Anderson MD Unavailable Ncaho Martin MD Primary Care Provider [phone] Allergies Active Allergy Reactions Criticality Noted Date [...] trimester 12/06/2022 Overview (12/14/2022): Pt transferred to [facility] and having IOL at 34w for severe features & ?partial placental abruption. Will likely return to [facility] for and [facility] for PPV 2x wkly HELLP labs [...] 35wks she will need to deliver at [facility] -She will need to come [...] trimester 12/04/2022 Gestational diabetes mellitus (GDM) in [facility] 11/05/2022 Overview (11/05/2022): Diagnosis of [...] care for . 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 We will continue to [...] Date Type Department Care Team Description 02/12/2025 [facility] RISK SCORES SYSTEM GENERATED External System Generated [...] w/ Preservative IM 02/22/2019,02/26/2017 MMR 11/15/1997,04/06/1994 Novel [id number], Injectable 03/01/2009 Polio - OPV 11/15/1997, 4,02/10/1993,1992 [...] PM EST) HCV NON-REACTIV E NON-REACTI VE [facility] Blood 07/07/2022 5:03 PM EST 07/07/2022 9:27 PM EST Caroline Nuñez [facility] LAB BLOOD ORDERABLES Final Resul t [address] [address] * Pap Test (07/07/2022 12:00 AM EST) 07/07/2022 07/08/2022 9:5 1 AM EST Narrative SEE NARRATIVE - 07/13/2022 11:18 AM EST [address] [address] Ham Facer: Ree Stafford MD NIGHT AUDITOR Cytology Report FINAL DIAGNOSIS A. PAP SMEAR [...] 59, 66, 68) Note: Testing performed by [employer] [facility] HR-HPV analysis. Clinical correlation is advised. This HPV test was performed at [facility], [address] [place] [address]. This test has been FDA approved for SurePath cervical cytology specimens. The accuracy and precision of this test for all other specimen sources has been verified in the Cytopathology Laboratory of the [facility] and has not been cleared or approved by the U.S. Food and Drug Administration. Clinical correlation is advised. CLINICAL HISTORY Date of Last Menstrual Period: Not Provided Menstrual History: Other Clinical Conditions: Screening Pap SPECIMEN SOURCE A: PAP SMEAR (SUREPATH) CE Patient Name: FIFI MARISCAL : 1990 (Age: 32) Sex: F Institution: [facility] Location: [facility] Date of Collection: 07/07/2022 Date [...] file Group ID:Not on file Type:Medicaid Address: [address] PPO HEALTH SAFETY NET PARTIAL Member Subscriber Plan / Payer (Ef fective 2022-Present) Name:Fifi Mariscal Relation to Subscriber:Self Name:Fifi Mariscal Payer ID:Not on file Group ID:Not on file Type:Medicaid Address: [address] PPO HEALTH SAFETY NET PARTIAL Member Subscriber Plan / Payer (Ef fective 2022-Present) Name:MariscalFifi sanchez Relation to Subscriber:Self Name:Fifi Mariscal Payer ID:Not on file Group ID:Not on file Type:Medicaid Address: [address] PPO PPO Member Subscriber Plan / Payer (Ef fective 2022-Present) Name:Fifi Mariscal Relation to Subscriber:Self Name:Fifi Mariscal Payer ID:Not on file Group ID:Not on file Type:Medicaid Address: [address] OUT STATE PPO HEALTH SAFETY NET PARTIAL Member Subscriber Plan / Payer (Ef fective 2022-Present) Name:Fifi Mariscal Relation to Subscriber:Self Name:Fifi Mariscal Payer ID:Not on file Group ID:Not on file Type:Medicaid Address: [address] OUT [facility] PPO Member Subscriber Plan / Payer (Ef fective 2022-Present) Name:Fifi Mariscal Relation to Subscriber:Self Name:Fifi Mariscal Payer ID:Not on file Group ID:Not on file Type:Medicaid Address: [address] OUT [facility] PPO Member Subscriber Plan / Payer (Ef fective 2022-Present) Name:Fifi Mariscal Relation to Subscriber:Self Name:Fifi Mariscal Payer ID:Not on file Group ID:Not on file Type:Medicaid Address: [address] [place] [address] HEALTH SAFETY NET PARTIAL PPO Advance Directives For more information, please contact: [phone] (9AM - 5PM Jaylyn/[facility], Wednesday-Wednesday) * Full Code (Latest Code Status on File) Date Activated Date Inactivated Comments 12/06/2022 8:05 PM Question Answer Comments Code Status Confirmed With: Patient Care Teams Information Security Consultant Relationship Specialty Start Date End Date Nacho Martin MD 230 [facility] [address] [place] [address] [email or web address] PCP - General 05/20/17 Dona Anderson MD [address] [place] [address] [email or web address] Historical LMR Provider 03/04/17 Additional Source Comments The information contained in this document represents components of the legal health record. It is not the complete legal health record.[facility]
== END 2025-02-14 12:20 | disposition home or self-care (01) ==
LOC: HO.HOSX 12:19
PROVIDERS: Visit Provider Orthopaedic Surgery
DX: Z47.89 Encounter for other orthopedic aftercare (principal); S63.8X2D Sprain of other part of left wrist and hand, subsequent encounter; Z98.890 Other specified postprocedural states; W10.9XXD Fall (on) (from) unspecified stairs and steps, subsequent encounter
CPT/HCPCS: 73110; 99212

== ENCOUNTER 2025-02-14 13:20 | Outpatient (AMB) | payer MEDICAID, SELFPAY ==
[2025-02-14 13:39] VITALS: BMI 41.0
--- NOTE | 2025-02-14 13:39 | MHC.OFFVIS ---
Vital Signs 02/14/25 13:39 Height 5 ft 1 in Weight 217 lb BMI 41.0 Intake Visit Reasons: PO LT SLIL repair, and ORIF Intake Note: Brianna is a 34 year old right hand dominant female who presents today for a post operative visit s/p Left Scapholunate ORIF & Scapholunate ligament repair 02/01/25. Patient was seen in the office on 02/09/25 for a splint change as it was feeling loose due to decreased swelling. States she hs no pain and is doing well. Xrays updated in office. Allergies diphenhydramine (From BENADRYL) Allergy (Unknown, Verified 02/14/25 13:42) HYPER AND SHAKING HPI HPI PO LT SLIL repair, and ORIF: Details: Brianna is a 34 year old right hand dominant woman who returns S/P left open reduction scapholunate joint with fixation, & scapholunate ligament repair, DOS: 02/01/25. S/P fall, DOI: 01/14/25. She says she is doing well and her pain is mild. Her swelling has improved and she was seen by NEGAR Parker on 02/09/25 for a splint change due to loosening.? She denies any numbness or tingling.? She fell off of her basement stairs, as there was no railing at the time in her new house.? 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 Sutures removed and Steri-Strips applied K-wires remain in place She can make a weak fist and extend all her digits She could supinate & pronate Sensation is intact Cap refill is brisk Radiographs: 3 views of the left wrist & scaphoid were taken & viewed by me today in clinic. They show a satisfactory reduction of the scapholunate interval, improvement of the scapholunate angle, with placement of 2 K-wires in satisfactory position Psych Appearance: grossly normal Affect: normal affect Attitude: cooperative Assessment & Plan Assessment & Plan (1) Left scapholunate ligament tear: Code(s): S63.8X2A - Sprain of other part of left wrist and hand, initial encounter Category: Medical (2) Contusion of left hand: Code(s): S60.222A - Contusion of left hand, initial encounter Category: Medical (3) Left wrist pain: Code(s): M25.532 - Pain in left wrist Category: Medical Plan Assessment & Plan: 1. Left scapholunate ligament tear, S/P open reduction scapholunate joint with fixation, & scapholunate ligament repair DOS: 02/01/25 DOI: 01/14/25 2. Left 2nd MCP joint contusion vs possible fracture, S/P fall DOI: 01/14/25 The patient appears to be doing well post-operatively I educated her about the post-operative course She was placed in a short arm cast, to be worn for the next 4 weeks I explained the signs and symptoms of infection, if the patient develops any new or worsening erythema, drainage, pain, or warmth they should contact the clinic or attend the ED. I discussed activity modifications, she is to lift nothing heavier than a cellphone for the next 6 weeks. They should also avoid any heavy impact activities, falls, or sports activities for the next 8 weeks She will perform gentle ROM exercises at home She should avoid any underwater activities at this time She can return to work with a 1lb weight limit in 3 weeks if she feels she is ready for it. 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 She will follow up in 4 weeks, and placement in a new cast. Then follow up in 2 more weeks and anticipate K-wire removal depending on healing, at 8 weeks post-op Scribed for Molly Rose MD by Eric Leon, medical office coordinator, on 02/14/25 at 2:00 PM, EST. Orders: Orders XR wrist LT min 3V Today M25.532 - Pain in left wrist Coding Level of Care Code Global (15846) Diagnoses Left scapholunate ligament tear S63.8X2A Contusion of left hand S60.222A Left wrist pain M25.532
--- OUTSIDE RECORDS SUMMARY | 2025-02-14 14:32 | XMS_ITS | Clinical Summary ---
Author Organization [facility] Address [address] [place] [address] Phone Care Team Providers Care Steam Engineer Name Role Phone Dona Anderson MD Unavailable Nacho Martin MD Primary Care Provider [phone] Allergies Active Allergy Reactions Criticality Noted Date [...] trimester 12/06/2022 Overview (12/14/2022): Pt transferred to [facility] and having IOL at 34w for severe features & ?partial placental abruption. Will likely return to [facility] for and [facility] for PPV 2x wkly HELLP labs [...] 35wks she will need to deliver at [facility] -She will need to come back [...] trimester 12/04/2022 Gestational diabetes mellitus (GDM) in [facility] 11/05/2022 Overview (11/05/2022): Diagnosis of gDM - [...] of care for . 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 She is having a democrat to learn predicted sex this weekend. BP [...] IUD (intrauterine device) in place 12/01/2017 06/07/2019 Encounters Date Type Department Care Team Description 02/12/2025 [facility] RISK SCORES SYSTEM GENERATED External System Generated Encounter [address] [place], [place] [address] Unknown, Unknown, from Last 3 Months Immunizations Immunization Administration Dates Next Due DTaP, unspecified formulation 11/15/1997 ,04/06/1994,06/05/1993,1992,1992 HPV, unspecified formulation 06/08/2008,08/18/19 08 HPV,quadrivalent 12/03/2008 Hepatitis B, unspecified formulation 11/15/1997, 01/19/1997,07/13/1996 Hib, unspecified formulation 07/13/1996, 06/05/1993,02/10/1993,1992 INFLUENZA, SPLIT VIRUS, TRIV ALENT W/ PRESERVATIVE IM 04/19/2012,03/01/2009 Influenza Quadrivalent Prese rvative Free IM 02/13/2020,03/02/2018,01/29/2016,2012 Influenza Quadrivalent w/ Preservative IM 02/22/2019,02/26/2017 MMR 11/15/1997,04/06/1994 Novel [id number], Injectable 03/01/2009 Polio - OPV 11/15/1997, 4,02/10/1993,1992 [...] DEPRESSION SCREENING 2004 INFLUENZA VACCINE (#1) 2024 , 02/22/2019, 03/02/2018, Additional history exists COVID-19 VACCINE [...] PM EST) HCV NON-REACTIV E NON-REACTI VE [facility] Blood 07/07/2022 5:03 PM EST 07/07/2022 9:27 PM EST Caroline Nuñez [facility] LAB BLOOD ORDERABLES Final Resul t [address] [address] * Pap Test (07/07/2022 12:00 AM EST) 07/07/2022 07/08/2022 9:5 1 AM EST Narrative SEE NARRATIVE - 07/13/2022 11:18 AM EST [address] [address] Filter Tank Tender Helper Head: Ree Stafford MD [employer] Cytology Report FINAL DIAGNOSIS A. PAP SMEAR [...] 59, 66, 68) Note: Testing performed by [employer] Onclarity HR-HPV analysis. Clinical correlation is advised. This HPV test was performed at [facility], [address] [place] [address]. This test has been FDA approved for SurePath cervical cytology specimens. The accuracy and precision of this test for all other specimen sources has been verified in the Cytopathology Laboratory of the [facility] and has not been cleared or approved by the U.S. Food and Drug Administration. Clinical correlation is advised. CLINICAL HISTORY Date of Last Menstrual Period: Not Provided Menstrual History: Other Clinical Conditions: Screening Pap SPECIMEN SOURCE A: PAP SMEAR (SUREPATH) CE Patient Name: FIFI MARISCAL : 1990 (Age: 32) Sex: F Institution: [facility] Location: [facility] Date of Collection: 07/07/2022 Date [...] file Group ID:Not on file Type:Medicaid Address: [address] PPO HEALTH SAFETY NET PARTIAL Member Subscriber Plan / Payer (Ef fective 2022-Present) Name:Fifi Mariscal Relation to Subscriber:Self Name:Fifi Mariscal Payer ID:Not on file Group ID:Not on file Type:Medicaid Address: [address] PPO HEALTH SAFETY NET PARTIAL Member Subscriber Plan / Payer (Ef fective 2022-Present) Name:MariscalFifi sanchez Relation to Subscriber:Self Name:Fifi Mariscal Payer ID:Not on file Group ID:Not on file Type:Medicaid Address: [address] PPO PPO Member Subscriber Plan / Payer (Ef fective 2022-Present) Name:Fifi Mariscal Relation to Subscriber:Self Name:Fifi Mariscal Payer ID:Not on file Group ID:Not on file Type:Medicaid Address: [address] OUT STATE PPO HEALTH SAFETY NET PARTIAL Member Subscriber Plan / Payer (Ef fective 2022-Present) Name:Fifi Mariscal Relation to Subscriber:Self Name:Fifi Mariscal Payer ID:Not on file Group ID:Not on file Type:Medicaid Address: [address] OUT [facility] PPO Member Subscriber Plan / Payer (Ef fective 2022-Present) Name:Fifi Mariscal Relation to Subscriber:Self Name:Fifi Mariscal Payer ID:Not on file Group ID:Not on file Type:Medicaid Address: [address] OUT [facility] PPO Member Subscriber Plan / Payer (Ef fective 2022-Present) Name:Fifi Mariscal Relation to Subscriber:Self Name:Fifi Mariscal Payer ID:Not on file Group ID:Not on file Type:Medicaid Address: [address] [place] [address] HEALTH SAFETY NET PARTIAL PPO Advance Directives For more information, please contact: [phone] (9AM - 5PM Jaylyn/[facility], Wednesday-Wednesday) * Full Code (Latest Code Status on File) Date Activated Date Inactivated Comments 12/06/2022 8:05 PM Question Answer Comments Code Status Confirmed With: Patient Care Teams Steam Engineer Relationship Specialty Start Date End Date Nacho Martin MD [address] [facility] [address] [place] [address] PCP - General 05/20/17 Dona Anderson MD [address] [place] [address] [email or web address] Historical LMR Provider 03/04/17 Additional Source Comments The information contained in this document represents components of the legal health record. It is not the complete legal health record.[facility]
--- OUTSIDE RECORDS SUMMARY | 2025-02-14 14:32 | XMS_ITS | Encounter Summary ---
Author Organization [facility] Address [address] [place] [address] Phone Care Team Providers Care Brim Cutter Name Role Phone Dona Anderson MD Unavailable Nacho Martin MD Primary Care Provider [phone] Encounter Details Date Type Department Care Team (Late st Contact Info) Description 02/12/2025 [facility] RISK SCORES SYSTEM GENERATED External System Generated Encounter [address] [place] [address] Unknown, Unknown, Social History Tobacco Use Types Packs/Day Years [...] as of this encounter Plan of Treatment Not on file documented as of this encounter Visit Diagnoses Not on filedocumented in this encounter Care Teams Brim Cutter Relationship Specialty Start Date End Date Nacho Martin MD [address] [facility] [address] [place] [address] [email or web address] PCP - General 05/20/17 Dona Anderson MD [address] [place] [address] [email or web address] Historical LMR Provider 03/04/17 documented as of this encounter Additional Source Comments The information contained in this document represents components of the legal health record. It is not the complete legal health record.[facility]
--- OUTSIDE RECORDS SUMMARY | 2025-02-14 14:32 | XMS_ITS | Encounter Summary ---
Author Organization [facility] Address [address] [place] [address] Phone Care Team Providers Care Telephone Diaphragm Assembler Name Role Phone Dona Anderson MD Unavailable Nacho Martin MD Primary Care Provider [phone] Reason for Referral * Consultation (Within 3 days (urgent)) - Closed Specialty Diagnoses / Procedures Referred By Valery t Referred To Contact Rhonda Ray CNM [address] [place] [address] Phone: tel: fax: [email or web address] [facility] [address] [place] [address] Phone: tel: Referral ID Status Reason Start Date Expiration Date Visits Re quested Visits Authorized [id number] Closed 12/04/2022 12/05/2023 1 1 Encounter Details Date Type Department Care Team (Late st Contact Info) Description 12/04/2022 Telephone [facility] Obstetrics - Virtual Department [address] [place] [address] Rhonda Ray CNM [address] [phone] Social History Tobacco Use Types Packs/Day Years [...] Associated Diagnoses Order Schedule Ambulatory referral to [facility] Sleep Medicine Outpatient Referral Routine Ordered: 12/04/2022 documented as of this encounter Visit Diagnoses Not on filedocumented in this encounter Care Teams Telephone Diaphragm Assembler Relationship Specialty Start Date End Date Nacho Martin MD [address] [place] [address] [phone] [email or web address] PCP - General 05/20/17 Dona Anderson MD [address] [place] [address] [email or web address] Historical LMR Provider 03/04/17 documented as of this encounter Additional Source Comments The information contained in this document represents components of the legal health record. It is not the complete legal health record.[facility]
== END 2025-02-14 15:05 | disposition home or self-care (01) ==
LOC: HO.HOS 13:21
PROVIDERS: PCP Physician Assistant; Visit Provider Orthopaedic Surgery
DX: S63.8X2A Sprain of other part of left wrist and hand, initial encounter (principal); S60.222A Contusion of left hand, initial encounter; M25.532 Pain in left wrist
CPT/HCPCS: 99024

== ENCOUNTER → 2025-02-14 13:29 | Outpatient (BNV) | payer MEDICAID, SELFPAY | PROVIDERS: Visit Provider Radiology Diagnostic Radiology | DX: M25.832 Other specified joint disorders, left wrist (principal) | CPT/HCPCS: 73110 ==

== ENCOUNTER 2025-02-23 09:54 | Outpatient (REF) | payer MEDICAID, SELFPAY ==
--- NOTE | ~2025-02-23 | XR_ITS ---
EXAMINATION: XR WRIST 3 OR MORE VIEWS LEFT HISTORY: M25.539 - Pain in unspecified wrist COMPARISON: Comparison is made with the prior examination dated 02/14/2025. FINDINGS: Three views of the left wrist are submitted. Osseous mineralization is normal. Again seen are K wires extending through the scaphoid and lunate as well as the scaphoid and capitate bones. No fracture is seen. The joint spaces are preserved. The soft tissues are unremarkable. XR/XR wrist LT min 3V IMPRESSION: Internal fixation of the left wrist as described. Electronically signed by: Jack Damon MD 02/23/2025 11:30 AM EDT
--- OUTSIDE RECORDS SUMMARY | 2025-02-23 10:45 | XMS_ITS | Encounter Summary ---
Author Organization [facility] Address [address] [place] [address] Phone Care Team Providers Care Workforce Management Manager Name Role Phone Dona Anderson MD Unavailable Nacho Martin MD Primary Care Provider [phone] Reason for Referral * Consultation (Within 3 days (urgent)) - Closed Specialty Diagnoses / Procedures Referred By Valery t Referred To Contact Rhonda Ray CNM [address] [place] [address] Phone: tel: fax: [email or web address] [facility] [address] [place] [address] Phone: tel: Referral ID Status Reason Start Date Expiration Date Visits Re quested Visits Authorized [id number] Closed 12/04/2022 12/05/2023 1 1 Encounter Details Date Type Department Care Team (Late st Contact Info) Description 12/04/2022 Telephone [facility] Obstetrics - Virtual Department [address] [place] [address] Rhonda Ray CNM [address] [phone] Social History Tobacco Use Types Packs/Day Years [...] Associated Diagnoses Order Schedule Ambulatory referral to [facility] Sleep Medicine Outpatient Referral Routine Ordered: 12/04/2022 documented as of this encounter Visit Diagnoses Not on filedocumented in this encounter Care Teams Workforce Management Manager Relationship Specialty Start Date End Date Nacho Martin MD [address] [place] [address] [phone] [email or web address] PCP - General 05/20/17 Dona Anderson MD [address] [place] [address] [email or web address] Historical LMR Provider 03/04/17 documented as of this encounter Additional Source Comments The information contained in this document represents components of the legal health record. It is not the complete legal health record.[facility]
--- OUTSIDE RECORDS SUMMARY | 2025-02-23 10:45 | XMS_ITS | Clinical Summary ---
Author Organization [facility] Address [address] [place] [address] Phone Care Team Providers Care Highway Patrol Commander Name Role Phone Dona Anderson MD Unavailable Nacho Martin MD Primary Care Provider [phone] Allergies Active Allergy Reactions Criticality Noted Date [...] trimester 12/06/2022 Overview (12/14/2022): Pt transferred to [facility] and having IOL at 34w for severe features & ?partial placental abruption. Will likely return to [facility] for and [facility] for PPV 2x wkly HELLP labs Immediate [...] 35wks she will need to deliver at [facility] -She will need to come back [...] trimester 12/04/2022 Gestational diabetes mellitus (GDM) in [facility] 11/05/2022 Overview (11/05/2022): Diagnosis of [...] for . 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 We will continue to [...] neg carrier screening. She is having a republican to learn predicted sex this weekend. BP [...] Date Type Department Care Team Description 02/12/2025 [facility] RISK SCORES SYSTEM GENERATED External System Generated [...] w/ Preservative IM 02/22/2019,02/26/2017 MMR 11/15/1997,04/06/1994 Novel [id number], Injectable 03/01/2009 Polio - OPV 11/15/1997, 4,02/10/1993,1992 [...] PM EST) HCV NON-REACTIV E NON-REACTI VE [facility] Blood 07/07/2022 5:03 PM EST 07/07/2022 9:27 PM EST Caroline Nuñez [facility] LAB BLOOD ORDERABLES Final Resul t [address] [address] * Pap Test (07/07/2022 12:00 AM EST) 07/07/2022 07/08/2022 9:5 1 AM EST Narrative SEE NARRATIVE - 07/13/2022 11:18 AM EST [address] [address] Armored Cable Machine Operator: Ree Stafford MD RESIDENTIAL TREATMENT SPECIALIST Cytology Report FINAL DIAGNOSIS A. PAP SMEAR [...] 59, 66, 68) Note: Testing performed by [facility] On[facility] HR-HPV analysis. Clinical correlation is advised. This HPV test was performed at [facility], [address] [place] [address]. This test has been FDA approved for SurePath cervical cytology specimens. The accuracy and precision of this test for all other specimen sources has been verified in the Cytopathology Laboratory of the [facility] and has not been cleared or approved by the U.S. Food and Drug Administration. Clinical correlation is advised. CLINICAL HISTORY Date of Last Menstrual Period: Not Provided Menstrual History: Other Clinical Conditions: Screening Pap SPECIMEN SOURCE A: PAP SMEAR (SUREPATH) CE Patient Name: FIFI MARISCAL : 1990 (Age: 32) Sex: F Institution: [facility] Location: [facility] Date of Collection: 07/07/2022 Date of [...] file Group ID:Not on file Type:Medicaid Address: [address] PPO HEALTH SAFETY NET PARTIAL Member Subscriber Plan / Payer (Ef fective 2022-Present) Name:Fifi Mariscal Relation to Subscriber:Self Name:Fifi Mariscal Payer ID:Not on file Group ID:Not on file Type:Medicaid Address: [address] PPO HEALTH SAFETY NET PARTIAL Member Subscriber Plan / Payer (Ef fective 2022-Present) Name:MariscalFifi sanchez Relation to Subscriber:Self Name:Fifi Mariscal Payer ID:Not on file Group ID:Not on file Type:Medicaid Address: [address] PPO PPO Member Subscriber Plan / Payer (Ef fective 2022-Present) Name:Fifi Mariscal Relation to Subscriber:Self Name:Fifi Mariscal Payer ID:Not on file Group ID:Not on file Type:Medicaid Address: [address] OUT STATE PPO HEALTH SAFETY NET PARTIAL Member Subscriber Plan / Payer (Ef fective 2022-Present) Name:Fifi Mariscal Relation to Subscriber:Self Name:Fiif Mariscal Payer ID:Not on file Group ID:Not on file Type:Medicaid Address: [address] OUT [facility] PPO Member Subscriber Plan / Payer (Ef fective 2022-Present) Name:Fifi Mariscal Relation to Subscriber:Self Name:Fifi Mariscal Payer ID:Not on file Group ID:Not on file Type:Medicaid Address: [address] OUT [facility] PPO Member Subscriber Plan / Payer (Ef fective 2022-Present) Name:Fifi Mariscal Relation to Subscriber:Self Name:Fifi Mariscal Payer ID:Not on file Group ID:Not on file Type:Medicaid Address: [address] [place] [address] HEALTH SAFETY NET PARTIAL PPO Advance Directives For more information, please contact: [phone] (9AM - 5PM Jaylyn/[facility], Wednesday-Wednesday) * Full Code (Latest Code Status on File) Date Activated Date Inactivated Comments 12/06/2022 8:05 PM Question Answer Comments Code Status Confirmed With: Patient Care Teams Highway Patrol Commander Relationship Specialty Start Date End Date Nacho Martin MD [address] [facility] [address] [place] [address] [email or web address] PCP - General 05/20/17 Dona Anderson MD [address] [place] [id number] [email or web address] Historical LMR Provider 03/04/17 Additional Source Comments The information contained in this document represents components of the legal health record. It is not the complete legal health record.[facility]
== END 2025-02-23 09:55 | disposition home or self-care (01) ==
LOC: HO.HOSX 09:54
PROVIDERS: Visit Provider Physician Assistant
DX: S63.8X2A Sprain of other part of left wrist and hand, initial encounter (principal); W19.XXXA Unspecified fall, initial encounter
CPT/HCPCS: 29125; 73110; 99212

== ENCOUNTER 2025-02-23 10:57 | Outpatient (AMB) | payer MEDICAID, SELFPAY ==
--- NOTE | 2025-02-23 11:02 | A.OFFVIS_ITS ---
Intake Visit Reasons: P/O LT SLIL repair, DOS 02/01/25 AR Intake Note: Brianna is a 34 year old right hand dominant female who presents today for a cast change/wound check s/p Left Scapholunate ORIF & Scapholunate ligament repair 02/01/25. She states that she had a fall 2 days ago and noticing numbness and tingling in her fingers. Patient is also noticing swelling in her fingers. Allergies diphenhydramine (From BENADRYL) Allergy (Unknown, Verified 02/23/25 11:02) HYPER AND SHAKING HPI HPI P/O LT SLIL repair, DOS 02/01/25 AR: Details: Ms. Borges is a 34-year-old female who presents to the office today status post left open reduction of the scapholunate joint was fixations and left scapholunate ligament repair performed by Dr. Rose on 02-01-25. Patient called the office earlier today stating that she fell 2 days ago and has noticed an increased pain and swelling in the left wrist and hand. She reports that the cast to remain to clean dry and intact. Cast was removed for x-rays to be obtained in the office today. 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 Mild to moderate edema located on the dorsal aspect of the hand extending into the digits. Able to make a closed fist. Able to extend all digits. Sensation is intact. Cap refill is brisk. Psych Appearance: grossly normal Mental Status: mental status grossly normal Attitude: cooperative Office Procedures Casting/Splints Other Splint (Volar) Procedure code (CPT) selection complete Assessment & Plan Assessment & Plan (1) Left scapholunate ligament tear: Code(s): S63.8X2A - Sprain of other part of left wrist and hand, initial encounter Category: Medical (2) Left wrist pain: Code(s): M25.532 - Pain in left wrist Category: Medical Plan Ms. Borges is a 34-year-old female who presents to the office today status post left open reduction of the scapholunate joint was fixations and left scapholunate ligament repair performed by Dr. Rose on 02-01-25. Patient called the office earlier today stating that she fell 2 days ago and has noticed an increased pain and swelling in the left wrist and hand. She reports that the cast to remain to clean dry and intact. Cast was removed for x-rays to be obtained in the office today. While the office today, repeat x-rays were obtained and there has been no change in the pin placements. The patient was placed into a splint to accommodate for increase in swelling. I educated the patient on performing hand motion to assist with minimizing edema. I also instructed the patient to elevate. No use of the left hand. She will follow up on Wednesday for likely placement into another cast once swelling has subsided, sooner if needed X-rays of the left wrist which were obtained while in the office today and were reviewed by me, Mikala Kline PA-C, revealed intact pin sites without displacement. Orders: Orders XR wrist LT min 3V Today M25.539 - Pain in unspecified wrist Coding Level of Care Code Global (85036) Diagnoses Left scapholunate ligament tear S63.8X2A Left wrist pain M25.532
== END 2025-02-23 12:11 | disposition home or self-care (01) ==
LOC: HO.HOS 10:58
PROVIDERS: Visit Provider Physician Assistant
DX: S63.8X2A Sprain of other part of left wrist and hand, initial encounter (principal); M25.532 Pain in left wrist
CPT/HCPCS: 29125; 99024

== ENCOUNTER → 2025-02-23 10:59 | Outpatient (BNV) | payer MEDICAID, SELFPAY | PROVIDERS: Visit Provider Radiology Diagnostic Radiology | DX: M25.532 Pain in left wrist (principal) | CPT/HCPCS: 73110 ==

== ENCOUNTER 2025-02-27 10:24 | Outpatient (AMB) | payer MEDICAID, SELFPAY ==
[2025-02-27 10:26] VITALS: BMI 41.0
--- NOTE | 2025-02-27 10:26 | MHC.OFFVIS ---
Vital Signs 02/27/25 10:26 Height 5 ft 1 in Weight 217 lb BMI 41.0 Intake Visit Reasons: PO LT SLIL repair, DOS 02/01/25 AR-w/xrays-woud chk Intake Note: Brianna is a 34 year old right hand dominant female who presents today for a post operative visit s/p Left Scapholunate ORIF & Scapholunate ligament repair 02/01/25. States on 02/21/25 she fell, landed on her knees and put her hand out to break her fall. She did not feel pain at the moment but 2 day later she experience swelling and soreness in her fingers. Seen with Silvio Bach on 02/23/25 where cast was removed and xrays updated. Patient was splinted. Today patient states she has had no pain since she was placed in a splint. Reports her swelling has also improved. Allergies diphenhydramine (From BENADRYL) Allergy (Unknown, Verified 02/27/25 10:30) HYPER AND SHAKING HPI HPI PO LT SLIL repair, DOS 02/01/25 AR-w/xrays-woud chk: Details: Brianna is a 34 year old right hand dominant woman who returns S/P left open reduction scapholunate joint with fixation, & scapholunate ligament repair, DOS: 02/01/25. S/P fall, DOI: 01/14/25. She is here for a wound check. She fell on 02/21/25 causing increased pain & swelling in her left wrist. She was seen by NEGAR Bach on 02/23/25 and placed in a splint. She says she fell while on a walk. She says she is doing well and her pain & swelling have both improved since wearing her splint She denies any numbness or tingling.? She fell off of her basement stairs, as there was no railing at the time in her new house.? 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 K-wires remain in place, and are also clean and dry with no erythema drainage or evidence of infection. She can make a weak fist and extend all her digits She has full thumb ROM without difficulty Sensation is intact Cap refill is brisk Radiographs: 3 views of the left wrist & scaphoid were taken & viewed by me today in clinic. They show a satisfactory reduction of the scapholunate interval, improvement of the scapholunate angle, with placement of 2 K-wires in satisfactory position Psych Appearance: grossly normal Affect: normal affect Attitude: cooperative Assessment & Plan Assessment & Plan (1) Left scapholunate ligament tear: Code(s): S63.8X2A - Sprain of other part of left wrist and hand, initial encounter Category: Medical (2) Contusion of left hand: Code(s): S60.222A - Contusion of left hand, initial encounter Category: Medical (3) Left wrist pain: Code(s): M25.532 - Pain in left wrist Category: Medical Plan Assessment & Plan: 1. Left scapholunate ligament tear, S/P open reduction scapholunate joint with fixation, & scapholunate ligament repair DOS: 02/01/25 DOI: 01/14/25 2. Left 2nd MCP joint contusion vs possible fracture, S/P fall DOI: 01/14/25 The patient appears to be doing well post-operatively I educated her about the post-operative course She was placed in a new short arm cast, to be worn for the next 2 weeks I explained the signs and symptoms of infection, if the patient develops any new or worsening erythema, drainage, pain, or warmth they should contact the clinic or attend the ED. I discussed activity modifications, she is to lift nothing heavier than a cellphone for the next 4 weeks. 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 She will follow up on 03/27/25, with X-rays, 3 views L wrist, OOP. Anticipate K-wire removal depending on healing Scribed for Molly Rose MD by Eric Leon, senior medical director, on 02/27/25 at 10:50 AM, EST. Coding Level of Care Code Global (77358) Diagnoses Left scapholunate ligament tear S63.8X2A Contusion of left hand S60.222A Left wrist pain M25.532
--- OUTSIDE RECORDS SUMMARY | 2025-02-27 12:16 | XMS_ITS | Clinical Summary ---
Author Organization [facility] Address [address] [place] [address] Phone Care Team Providers Care Car Clerk Pullman Name Role Phone Dona Anderson MD Unavailable Nacho Martin MD Primary Care Provider [phone] Allergies Active Allergy Reactions Criticality Noted Date [...] trimester 12/06/2022 Overview (12/14/2022): [place] [facility] and having IOL at 34w for severe features & ?partial placental abruption. Will likely return to [facility] for and [facility] for PPV 2x wkly HELLP labs [...] 35wks she will need to deliver at [facility] -She will need to come [...] mellitus (GDM) in [facility] 11/05/2022 Overview (11/05/2022): Diagnosis of gDM - [...] care for . 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 We will continue [...] Date Type Department Care Team Description 02/12/2025 [facility] RISK SCORES SYSTEM GENERATED External [...] w/ Preservative IM 02/22/2019,02/26/2017 MMR 11/15/1997,04/06/1994 Novel [id number], Injectable 03/01/2009 Polio - OPV 11/15/1997, 4,02/10/1993,1992 [...] PM EST) HCV NON-REACTIV E NON-REACTI VE [facility] Blood 07/07/2022 5:03 PM EST 07/07/2022 9:27 PM EST Caroline Nuñez [facility] LAB BLOOD ORDERABLES Final Resul t [address] [address] * Pap Test (07/07/2022 12:00 AM EST) 07/07/2022 07/08/2022 9:5 1 AM EST Narrative SEE NARRATIVE - 07/13/2022 11:18 AM EST [address] [address] Drill Runner Helper: Ree Stafford MD FEATHER TRIMMER Cytology Report FINAL DIAGNOSIS A. PAP SMEAR [...] 59, 66, 68) Note: Testing performed by [facility] HR-HPV analysis. Clinical correlation is advised. This HPV test was performed at [facility], [address] [place] [address]. This test has been FDA approved for SurePath cervical cytology specimens. The accuracy and precision of this test for all other specimen sources has been verified in the Cytopathology Laboratory of the [facility] and has not been cleared or approved by the U.S. Food and Drug Administration. Clinical correlation is advised. CLINICAL HISTORY Date of Last Menstrual Period: Not Provided Menstrual History: Other Clinical Conditions: Screening Pap SPECIMEN SOURCE A: PAP SMEAR (SUREPATH) CE Patient Name: FIFI MARISCAL : 1990 (Age: 32) Sex: F Institution: [facility] Location: [facility] Date of Collection: 07/07/2022 Date of Reported: [...] file Group ID:Not on file Type:Medicaid Address: [address] PPO HEALTH SAFETY NET PARTIAL Member Subscriber Plan / Payer (Ef fective 2022-Present) Name:Fifi Mariscal Relation to Subscriber:Self Name:Fifi Mariscal Payer ID:Not on file Group ID:Not on file Type:Medicaid Address: [address] PPO HEALTH SAFETY NET PARTIAL Member Subscriber Plan / Payer (Ef fective 2022-Present) Name:MariscalFifi sanchez Relation to Subscriber:Self Name:Fifi Mariscal Payer ID:Not on file Group ID:Not on file Type:Medicaid Address: [address] PPO PPO Member Subscriber Plan / Payer (Ef fective 2022-Present) Name:Fifi Mariscal Relation to Subscriber:Self Name:Fifi Mariscal Payer ID:Not on file Group ID:Not on file Type:Medicaid Address: [address] OUT [place] PPO HEALTH SAFETY NET PARTIAL Member Subscriber Plan / Payer (Ef fective 2022-Present) Name:Fifi Mariscal Relation to Subscriber:Self Name:Fifi Mariscal Payer ID:Not on file Group ID:Not on file Type:Medicaid Address: [address] OUT [facility] PPO Member Subscriber Plan / Payer (Ef fective 2022-Present) Name:Fifi Mariscal Relation to Subscriber:Self Name:Fifi Mariscal Payer ID:Not on file Group ID:Not on file Type:Medicaid Address: [address] OUT [facility] PPO Member Subscriber Plan / Payer (Ef fective 2022-Present) Name:Fifi Mariscal Relation to Subscriber:Self Name:Fifi Mariscal Payer ID:Not on file Group ID:Not on file Type:Medicaid Address: [address] [place] [address] HEALTH SAFETY NET PARTIAL PPO Advance Directives For more information, please contact: [phone] (9AM - 5PM Jaylyn/[facility], Wednesday-Wednesday) * Full Code (Latest Code Status on File) Date Activated Date Inactivated Comments 12/06/2022 8:05 PM Question Answer Comments Code Status Confirmed With: Patient Care Teams Car Clerk Pullman Relationship Specialty Start Date End Date Nacho Martin MD [address] [facility] [address] [place] [address] [email or web address] PCP - General 05/20/17 Dona Anderson MD [address] [place] [address] [email or web address] Historical LMR Provider 03/04/17 Additional Source Comments The information contained in this document represents components of the legal health record. It is not the complete legal health record.[facility]
--- OUTSIDE RECORDS SUMMARY | 2025-02-27 12:16 | XMS_ITS | Encounter Summary ---
Author Organization [facility] Address [address] [place] [address] Phone Care Team Providers Care Card Tender Name Role Phone Dona Anderson MD Unavailable Nacho Martin MD Primary Care Provider [phone] Reason for Referral * Consultation (Within 3 days (urgent)) - Closed Specialty Diagnoses / Procedures Referred By Valery t Referred To Contact Rhonda Ray CNM [address] [place] [address] Phone: tel: fax: [email or web address] [facility] [address] [place] [address] Phone: tel: Referral ID Status Reason Start Date Expiration Date Visits Re quested Visits Authorized [id number] Closed 12/04/2022 12/05/2023 1 1 Encounter Details Date Type Department Care Team (Late st Contact Info) Description 12/04/2022 Telephone [facility] Obstetrics - Virtual Department [address] [place] [address] Rhonda Ray CNM [address] [id number] Social History Tobacco Use Types Packs/Day Years [...] Associated Diagnoses Order Schedule Ambulatory referral to [facility] Sleep Medicine Outpatient Referral Routine Ordered: 12/04/2022 documented as of this encounter Visit Diagnoses Not on filedocumented in this encounter Care Teams Card Tender Relationship Specialty Start Date End Date Nacho Martin MD [address] [place] [address] [phone] [email or web address] PCP - General 05/20/17 Dona Anderson MD [address] [place] [address] [email or web address] Historical LMR Provider 03/04/17 documented as of this encounter Additional Source Comments The information contained in this document represents components of the legal health record. It is not the complete legal health record.[facility]
== END 2025-02-27 11:17 | disposition home or self-care (01) ==
LOC: HO.HOS 10:24
PROVIDERS: Visit Provider Orthopaedic Surgery
DX: S63.8X2A Sprain of other part of left wrist and hand, initial encounter (principal); S60.222A Contusion of left hand, initial encounter; M25.532 Pain in left wrist
CPT/HCPCS: 99024

== ENCOUNTER → 2025-02-27 10:24 | Outpatient (BNVA) | payer MEDICAID, SELFPAY | PROVIDERS: Visit Provider Orthopaedic Surgery | DX: M25.532 Pain in left wrist (principal); S60.222A Contusion of left hand, initial encounter; S63.8X2A Sprain of other part of left wrist and hand, initial encounter | CPT/HCPCS: 99212 ==

== ENCOUNTER 2025-03-09 09:29 | Outpatient (REF) | payer MEDICAID, SELFPAY ==
--- NOTE | ~2025-03-09 | XR_ITS ---
EXAMINATION: XR WRIST, LEFT CLINICAL INFORMATION: M25.532 - Pain in left wrist COMPARISON: February 23, 2025 and January 24, 2025 TECHNIQUE: PA, lateral, and oblique views of the left wrist. FINDINGS: Metallic K wires placed with the radial approach through the scapholunate and scaphoid capitate, unchanged since the most recent exam. Metacarpal bones are intact. Distal radius and ulna are intact. XR/XR wrist LT min 3V IMPRESSION: Stable internal fixation of the scapholunate and scaphoid capitate joints. Electronically signed by: Daniel Chung MD 03/09/2025 09:54 AM EDT
== END 2025-03-09 09:30 | disposition home or self-care (01) ==
LOC: HO.HOSX 09:29
DX: S63.8X2A Sprain of other part of left wrist and hand, initial encounter (principal); X58.XXXA Exposure to other specified factors, initial encounter
CPT/HCPCS: 29075; 73110; 99212

== ENCOUNTER 2025-03-09 09:30 | Outpatient (AMB) | payer MEDICAID, SELFPAY ==
--- NOTE | 2025-03-09 09:41 | MHC.OFFVIS ---
Vital Signs 03/09/25 09:42 Height 5 ft 1 in Weight 217 lb BMI 41.0 Intake Visit Reasons: PO LT SLIL repair DOS 02/01/25/cast change Intake Note: Brianna is a 34 year old right hand dominant female who presents today for a Cast Change status post Left Scapholunate ORIF & Scapholunate ligament repair 02/01/25. Patient was last evaluated by Dr. Rose on 02/27/25. She was placed in a short-arm cast for 2 weeks. She has an appointment scheduled with Dr. Rose on 03/28/25 for possible K-wire removal depending on healing. Allergies diphenhydramine (From BENADRYL) Allergy (Unknown, Verified 03/09/25 09:42) HYPER AND SHAKING HPI HPI PO LT SLIL repair DOS 02/01/25/cast change: Details: Brianna is a 34 year old right hand dominant female who presents today for a Cast Change status post Left Scapholunate ORIF & Scapholunate ligament repair 02/01/25. Patient was last evaluated by Dr. Rose on 02/27/25. She was placed in a short-arm cast for 2 weeks. She has an appointment scheduled with Dr. Rose on 03/28/25 for possible K-wire removal depending on healing. 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 K-wires remain in place, and are also clean and dry with no erythema drainage or evidence of infection. She can make a weak fist and extend all her digits She has full thumb ROM without difficulty Sensation is intact Cap refill is brisk Radiographs: 3 views of the left wrist & scaphoid were taken & viewed by me today in clinic. They show a satisfactory reduction of the scapholunate interval, improvement of the scapholunate angle, with placement of 2 K-wires in satisfactory position Psych Appearance: grossly normal Affect: normal affect Attitude: cooperative Office Procedures Casting/Splints 53807-Svxd/Wrist Cast Application Procedure code (CPT) selection complete Assessment & Plan Assessment & Plan (1) Left scapholunate ligament tear: Code(s): S63.8X2A - Sprain of other part of left wrist and hand, initial encounter Category: Medical (2) Contusion of left hand: Code(s): S60.222A - Contusion of left hand, initial encounter Category: Medical (3) Left wrist pain: Code(s): M25.532 - Pain in left wrist Category: Medical Plan Assessment & Plan: 1. Left scapholunate ligament tear, S/P open reduction scapholunate joint with fixation, & scapholunate ligament repair DOS: 02/01/25 DOI: 01/14/25 2. Left 2nd MCP joint contusion vs possible fracture, S/P fall DOI: 01/14/25 The patient appears to be doing well post-operatively I educated her about the post-operative course She was placed in a new short arm cast, to be worn for the next 2 weeks Patient is educated on proper cast care and precautions Follow-up for previously scheduled appointment with Dr. Rose, sooner with any acute concerns Coding Level of Care Code Global (40579) Diagnoses Left scapholunate ligament tear S63.8X2A Contusion of left hand S60.222A Left wrist pain M25.532 CPT Codes Casting - CPT: 05091-Fent/Wrist Cast Application ([id number])
[2025-03-09 09:42] VITALS: BMI 41.0
--- OUTSIDE RECORDS SUMMARY | 2025-03-09 10:29 | XMS_ITS | Encounter Summary ---
Author Organization [facility] Address [address] [place] [address] Phone Care Team Providers Care Commissions Coordinator Name Role Phone Dona Anderson MD Unavailable Nacho Martin MD Primary Care Provider [phone] Reason for Referral * Consultation (Within 3 days (urgent)) - Closed Specialty Diagnoses / Procedures Referred By Valery t Referred To Contact Rhonda Ray CNM [address] [place] [address] Phone: tel: fax: [email or web address] [address] [place] [address] Phone: tel: Referral ID Status Reason Start Date Expiration Date Visits Re quested Visits Authorized [id number] Closed 12/04/2022 12/05/2023 1 1 Encounter Details Date Type Department Care Team (Late st Contact Info) Description 12/04/2022 Telephone [facility] Obstetrics - Virtual Department [address] [place] [address] Rhonda Ray CNM [address] [id number] Social History Tobacco Use Types Packs/Day Years [...] Associated Diagnoses Order Schedule Ambulatory referral to [facility] Sleep Medicine Outpatient Referral Routine Ordered: 12/04/2022 documented as of this encounter Visit Diagnoses Not on filedocumented in this encounter Care Teams Commissions Coordinator Relationship Specialty Start Date End Date Nacho Martin MD [address] [place] [address] [phone] [email or web address] PCP - General 05/20/17 Dona Anderson MD [address] [place] [address] [email or web address] Historical LMR Provider 03/04/17 documented as of this encounter Additional Source Comments The information contained in this document represents components of the legal health record. It is not the complete legal health record.[facility]
--- OUTSIDE RECORDS SUMMARY | 2025-03-09 10:29 | XMS_ITS | Clinical Summary ---
Author Organization [facility] Address [address] [place] [address] Phone Care Team Providers Care Electrician Third Name Role Phone Dona Anderson MD Unavailable Nacho Martin MD Primary Care Provider [phone] Allergies Active Allergy Reactions Criticality Noted Date [...] 12/06/2022 Overview (12/14/2022): Pt transferred to [facility] and having IOL at 34w for severe features & ?partial placental abruption. Will likely return to [facility] for and [facility] for PPV 2x wkly HELLP labs Immediate [...] 35wks she will need to deliver at [facility] -She will need to come back to [...] trimester 12/04/2022 Gestational diabetes mellitus (GDM) in [facility] 11/05/2022 Overview (11/05/2022): Diagnosis of gDM [...] of care for . 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 We will continue [...] Date Type Department Care Team Description 02/12/2025 [facility] RISK SCORES SYSTEM GENERATED External System Generated [...] w/ Preservative IM 02/22/2019,02/26/2017 MMR 11/15/1997,04/06/1994 Novel [id number], Injectable 03/01/2009 Polio - OPV 11/15/1997, 4,02/10/1993,1992 [...] EST) HCV NON-REACTIV E NON-REACTI VE [facility] Blood 07/07/2022 5:03 PM EST 07/07/2022 9:27 PM EST Caroline Nuñez [facility] LAB BLOOD ORDERABLES Final Resul t [address] [address] * Pap Test (07/07/2022 12:00 AM EST) 07/07/2022 07/08/2022 9:5 1 AM EST Narrative SEE NARRATIVE - 07/13/2022 11:18 AM EST [address] [address] Chair Car Attendant: Ree Stafford MD PRESSURE VESSEL INSPECTOR Cytology Report FINAL DIAGNOSIS A. PAP SMEAR [...] 59, 66, 68) Note: Testing performed by [employer] Oncl[facility] HR-HPV analysis. Clinical correlation is advised. This HPV test was performed at [facility], [address] [place] [address]. This test has been FDA approved for SurePath cervical cytology specimens. The accuracy and precision of this test for all other specimen sources has been verified in the Cytopathology Laboratory of the [facility] and has not been cleared or approved by the U.S. Food and Drug Administration. Clinical correlation is advised. CLINICAL HISTORY Date of Last Menstrual Period: Not Provided Menstrual History: Other Clinical Conditions: Screening Pap SPECIMEN SOURCE A: PAP SMEAR (SUREPATH) CE Patient Name: FIFI AMRISCAL : 1990 (Age: 32) Sex: F Institution: [facility] Location: [facility] Date of Collection: 07/07/2022 Date [...] file Group ID:Not on file Type:Medicaid Address: [address] PPO HEALTH SAFETY NET PARTIAL Member Subscriber Plan / Payer (Ef fective 2022-Present) Name:Fifi Mariscal Relation to Subscriber:Self Name:Fifi Mariscal Payer ID:Not on file Group ID:Not on file Type:Medicaid Address: [address] PPO HEALTH SAFETY NET PARTIAL Member Subscriber Plan / Payer (Ef fective 2022-Present) Name:MariscalFifi sanchez Relation to Subscriber:Self Name:Fifi Mariscal Payer ID:Not on file Group ID:Not on file Type:Medicaid Address: [address] PPO PPO Member Subscriber Plan / Payer (Ef fective 2022-Present) Name:Fifi Mariscal Relation to Subscriber:Self Name:Fifi Mariscal Payer ID:Not on file Group ID:Not on file Type:Medicaid Address: [address] PPO HEALTH SAFETY NET PARTIAL Member Subscriber Plan / Payer (Ef fective 2022-Present) Name:Fifi Mariscal Relation to Subscriber:Self Name:Fifi Mariscal Payer ID:Not on file Group ID:Not on file Type:Medicaid Address: [address] OUT [facility] PPO Member Subscriber Plan / Payer (Ef fective 2022-Present) Name:Fifi Mariscal Relation to Subscriber:Self Name:Fifi Mariscal Payer ID:Not on file Group ID:Not on file Type:Medicaid Address: [address] OUT [facility] PPO Member Subscriber Plan / Payer (Ef fective 2022-Present) Name:Fifi Mariscal Relation to Subscriber:Self Name:Fifi Mariscal Payer ID:Not on file Group ID:Not on file Type:Medicaid Address: [address] [place] [address] HEALTH SAFETY NET PARTIAL PPO Advance Directives For more information, please contact: [phone] (9AM - 5PM Jaylyn/[facility], Wednesday-Wednesday) * Full Code (Latest Code Status on File) Date Activated Date Inactivated Comments 12/06/2022 8:05 PM Question Answer Comments Code Status Confirmed With: Patient Care Teams Electrician Third Relationship Specialty Start Date End Date Nacho Martin MD [address] [facility] [address] [place] [address] [email or web address] PCP - General 05/20/17 Dona Anderson MD [address] [place] [address] [email or web address] Historical LMR Provider 03/04/17 Additional Source Comments The information contained in this document represents components of the legal health record. It is not the complete legal health record.[facility]
== END 2025-03-09 10:43 | disposition home or self-care (01) ==
LOC: HO.HOS 09:30
DX: S63.8X2A Sprain of other part of left wrist and hand, initial encounter (principal); S60.222A Contusion of left hand, initial encounter; M25.532 Pain in left wrist
CPT/HCPCS: 29075; 99024

== ENCOUNTER → 2025-03-09 09:31 | Outpatient (BNV) | payer MEDICAID, SELFPAY | PROVIDERS: Visit Provider Radiology Diagnostic Radiology | DX: M25.532 Pain in left wrist (principal) | CPT/HCPCS: 73110 ==

== ENCOUNTER 2025-03-20 09:31 | Outpatient (REF) | payer MEDICAID, SELFPAY ==
--- NOTE | ~2025-03-20 | XR_ITS ---
EXAMINATION: XR WRIST, LEFT CLINICAL INFORMATION: M25.532 - Pain in left wrist COMPARISON: 03/09/2025, 02/23/2025, 02/14/2025. TECHNIQUE: PA, lateral, and oblique views of the left wrist. FINDINGS: Osseous mineralization is normal. Again seen are K wires extending through the scaphoid and lunate as well as the scaphoid and capitate bones. No fracture is seen. The joint spaces are preserved. The soft tissues are unremarkable. XR/XR wrist LT min 3V IMPRESSION: No significant interval change from 03/09/2025. Electronically signed by: Rian Fair MD 03/20/2025 10:10 AM LYNDSEY
== END 2025-03-20 09:32 | disposition home or self-care (01) ==
LOC: HO.HOSX 09:31
PROVIDERS: Visit Provider Orthopaedic Surgery
DX: S63.8X2D Sprain of other part of left wrist and hand, subsequent encounter (principal); X58.XXXD Exposure to other specified factors, subsequent encounter
CPT/HCPCS: 73110; 99212

== ENCOUNTER 2025-03-20 09:31 | Outpatient (AMB) | payer MEDICAID, SELFPAY ==
--- NOTE | 2025-03-20 10:03 | A.OFFVIS_ITS ---
Vital Signs 03/20/25 10:04 Height 5 ft 1 in Weight 217 lb BMI 41.0 Intake Visit Reasons: PO LT SLIL repair, DOS 02/01/25 AR w/xrays Intake Note: Brianna is a 34 year old right hand dominant female who presents today for a Cast Change status post Left Scapholunate ORIF & Scapholunate ligament repair 02/01/25. States she is having increase stabbing pain, no re-injury she can think of. Allergies diphenhydramine (From BENADRYL) Allergy (Unknown, Verified 03/20/25 10:09) HYPER AND SHAKING HPI HPI PO LT SLIL repair, DOS 02/01/25 AR w/xrays: Details: Brianna is a 34 year old right hand dominant woman who returns S/P left open reduction scapholunate joint with fixation, & scapholunate ligament repair, DOS: 02/01/25. S/P fall, DOI: 01/14/25. She is here for a cast change. She was last seen on 03/09/25 by NEGAR Parker for a cast change as well. Her next follow-up appointment is scheduled for 03/28/25. She fell on 02/21/25 causing increased pain & swelling in her left wrist. She was seen by NEGAR Bach on 02/23/25 and placed in a splint. She says she fell while on a walk. She complains of an increased stabbing pain in the radial aspect of her wrist, near the pin sites, for ~2 days, which she says is worst with any thumb motion. She denies any recent falls or injuries since her last appointment. She denies any numbness or tingling.? She fell off of her basement stairs, as there was no railing at the time in her new house.? 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, but does say she went back in to work one shift, which went well. 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 K-wires removed today in clinic, which she tolerated well She can make a weak fist and extend all her digits She has full thumb ROM without difficulty Sensation is intact Cap refill is brisk Radiographs: 3 views of the left wrist & scaphoid were taken & viewed by me today in clinic. They show a satisfactory reduction of the scapholunate interval, improvement of the scapholunate angle, with placement of 2 K-wires in satisfactory position, the K-wire passing from the scaphoid to the capitate & hamatehas migrated in somewhat deeper when compared to radiographs from 02/14/25. Psych Appearance: grossly normal Affect: normal affect Attitude: cooperative Assessment & Plan Assessment & Plan (1) Left scapholunate ligament tear: Code(s): S63.8X2A - Sprain of other part of left wrist and hand, initial encounter Category: Medical (2) Contusion of left hand: Code(s): S60.222A - Contusion of left hand, initial encounter Category: Medical (3) Left wrist pain: Code(s): M25.532 - Pain in left wrist Category: Medical Plan Assessment & Plan: 1. Left scapholunate ligament tear, S/P open reduction scapholunate joint with fixation, & scapholunate ligament repair DOS: 02/01/25 DOI: 01/14/25 K-wires removed: 03/20/25 2. Left 2nd MCP joint contusion vs possible fracture, S/P fall DOI: 01/14/25 The patient appears to be doing well post-operatively I educated her about the post-operative course She was placed in a new short arm cast, to be worn for the next 3 weeks I explained the signs and symptoms of infection, if the patient develops any new or worsening erythema, drainage, pain, or warmth they should contact the clinic or attend the ED. Due to her slight pin migration, and out of an abundance of caution, I ordered a 5 day course of PO Augmentin. I discussed activity modifications, she is to lift nothing heavier than a cellphone for the next 3 week. They should also avoid any heavy impact activities, falls, or sports activities for the next 3 weeks She will perform gentle ROM exercises at home She should avoid any underwater activities for the next 5 days She works as a nurse but primarily on a computer. She will follow up in 3 weeks, with X-rays, 3 views L wrist, OOP. Anticipate splint placement and gentle wrist ROM, no heavy activities for the next few months. OT to work on gentle range of motion. Scribed for Molly Rose MD by Eric Leon, medical library assistant, on 03/20/25 at 10:20 AM, EST. Orders: Orders XR wrist LT min 3V Today M25.532 - Pain in left wrist Medications: New amoxicillin-pot clavulanate 875-125 mg 1 tab PO Q12H 10 tabs 0RF Coding Level of Care Code Global (10770) Diagnoses Left scapholunate ligament tear S63.8X2A Contusion of left hand S60.222A Left wrist pain M25.532
[2025-03-20 10:04] VITALS: BMI 41.0
--- OUTSIDE RECORDS SUMMARY | 2025-03-20 10:42 | XMS_ITS | Clinical Summary ---
Author Organization [facility] Address [address] [place] [address] Phone Care Team Providers Care Classroom Coordinator Name Role Phone Dona Anderson MD Unavailable Nacho Martin MD Primary Care Provider [phone] Allergies Active Allergy Reactions Criticality Noted Date [...] trimester 12/06/2022 Overview (12/14/2022): Pt transferred to [facility] and having IOL at 34w for severe features & ?partial placental abruption. Will likely return to [facility] for and [facility] for PPV 2x wkly HELLP [...] 35wks she will need to deliver at [facility] -She will need to come back [...] care for . 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 We will continue to discuss [...] Date Type Department Care Team Description 02/12/2025 [facility] RISK SCORES SYSTEM GENERATED [...] w/ Preservative IM 02/22/2019,02/26/2017 MMR 11/15/1997,04/06/1994 Novel [id number], Injectable 03/01/2009 Polio - OPV 11/15/1997, 4,02/10/1993,1992 [...] PM EST) HCV NON-REACTIV E NON-REACTI VE [facility] Blood 07/07/2022 5:03 PM EST 07/07/2022 9:27 PM EST Caroline Nuñez CN LAB BLOOD BKR ORDERABLES Final R esult [address] [address] * Pap Test (07/07/2022 12:00 AM EST) 07/07/2022 07/08/2022 9:5 1 AM EST Narrative SEE NARRATIVE - 07/13/2022 11:18 AM EST [address] [address] Shank Inspector: Ree Stafford MD SALAD MAKER Cytology Report FINAL DIAGNOSIS A. PAP SMEAR [...] 59, 66, 68) Note: Testing performed by [employer] Onclarity HR-HPV analysis. Clinical correlation is advised. This HPV test was performed at [facility], [address] [place] [address]. This test has been FDA approved for SurePath cervical cytology specimens. The accuracy and precision of this test for all other specimen sources has been verified in the Cytopathology Laboratory of the [facility] and has not been cleared or approved by the U.S. Food and Drug Administration. Clinical correlation is advised. CLINICAL HISTORY Date of Last Menstrual Period: Not Provided Menstrual History: Other Clinical Conditions: Screening Pap SPECIMEN SOURCE A: PAP SMEAR (SUREPATH) CE Patient Name: FIFI MARISCAL : 1990 (Age: 32) Sex: F Institution: [facility] Location: [facility] Date of Collection: 07/07/2022 Date of Reported: 07/13/2022 11:18 Results to: Caroline LAMAR Caroline Nuñez CNM CYTOLOGY ORDERABLES Final Result SEE NARRATIVE from Last 3 Months or Most Recently Relevant to Health Maintenance Insurance HEALTH SAFETY NET PARTIAL Member Subscriber Plan / Payer (Ef fective 2022-Present) Name:Nii Mariscalia Relation to Subscriber:Self Name:Nii Mariscalia Payer ID:Not on file Group ID:Not on file Type:Medicaid Address: [address] STATE PPO HEALTH SAFETY NET PARTIAL Member Subscriber Plan / Payer (Ef fective 2022-Present) Name:Fifi Mariscal Relation to Subscriber:Self Name:MariscalNiiia Payer ID:Not on file Group ID:Not on file Type:Medicaid Address: [address] PPO HEALTH SAFETY NET PARTIAL Member Subscriber Plan / Payer (Ef fective 2022-Present) Name:Fifi Mariscal Relation to Subscriber:Self Name:Mariscal, Fifi Payer ID:Not on file Group ID:Not on file Type:Medicaid Address: [address] PPO HEALTH SAFETY NET PARTIAL PPO HEALTH SAFETY NET PARTIAL Member Subscriber Plan / Payer (Ef fective 2022-Present) Name:Fifi Mariscal Relation to Subscriber:Self Name:Fifi Mariscal Payer ID:Not on file Group ID:Not on file Type:Medicaid Address: [address] OUT [facility] PPO HEALTH SAFETY NET PARTIAL Member Subscriber Plan / Payer (Ef fective 2022-Present) Name:Fifi Mariscal Relation to Subscriber:Self Name:Fifi Mariscal Payer ID:Not on file Group ID:Not on file Type:Medicaid Address: [address] OUT [facility] PPO Member Subscriber Plan / Payer (Ef fective 2022-Present) Name:Fifi Mariscal Relation to Subscriber:Self Name:Fifi Mariscal Payer ID:Not on file Group ID:Not on file Type:Medicaid Address: [address] PPO Member Subscriber Plan / Payer (Ef fective 2022-) Name:Fifi Mariscal Relation to Subscriber:Self Name:Fifi Mariscal Payer ID:Not on file Group ID:Not on file Type:Medicaid Address: [address] OUT [facility] PPO HEALTH SAFETY NET PARTIAL PPO Advance Directives For more information, please contact: [phone] (9AM - 5PM Jaylyn/[facility], Wednesday-Wednesday) * Full Code (Latest Code Status on File) Date Activated Date Inactivated Comments 12/06/2022 8:05 PM Question Answer Comments Code Status Confirmed With: Patient Care Teams Classroom Coordinator Relationship Specialty Start Date End Date Nacho Martin MD [address] [facility] [address] [place] [phone] [email or web address] PCP - General 05/20/17 Dona Anderson MD [address] [place] [address], [address] [address] [email or web address] Historical LMR Provider 03/04/17 Additional Source Comments The information contained in this document represents components of the legal health record. It is not the complete legal health record.[facility]
--- OUTSIDE RECORDS SUMMARY | 2025-03-20 10:42 | XMS_ITS | Encounter Summary ---
Author Organization [facility] Address [address] [place] [address] Phone Care Team Providers Care Claim Administrator Name Role Phone Dona Anderson MD Unavailable Nacho Martin MD Primary Care Provider [phone] Reason for Referral * Consultation (Within 3 days (urgent)) - Closed Specialty Diagnoses / Procedures Referred By Valery t Referred To Contact Rhonda Ray CNM [address] [place] [address] Phone: tel: fax: [email or web address] [address] [place] [address] Phone: tel: Referral ID Status Reason Start Date Expiration Date Visits Re quested Visits Authorized [id number] Closed 12/04/2022 12/05/2023 1 1 Encounter Details Date Type Department Care Team (Late st Contact Info) Description 12/04/2022 Telephone [facility] Obstetrics - Virtual Department [address] [place] [address] Rhonda Ray CNM [address] [phone] Social History Tobacco Use Types Packs/Day Years [...] Associated Diagnoses Order Schedule Ambulatory referral to [facility] Sleep Medicine Outpatient Referral Routine Ordered: 12/04/2022 documented as of this encounter Visit Diagnoses Not on filedocumented in this encounter Care Teams Claim Administrator Relationship Specialty Start Date End Date Nacho Martin MD [address] [place] [address] [phone] [email or web address] PCP - General 05/20/17 Dona Anderson MD [address] [place] [address] [email or web address] Historical LMR Provider 03/04/17 documented as of this encounter Additional Source Comments The information contained in this document represents components of the legal health record. It is not the complete legal health record.[facility]
== END 2025-03-20 11:16 | disposition home or self-care (01) ==
LOC: HO.HOS 09:31
PROVIDERS: Visit Provider Orthopaedic Surgery
DX: S63.8X2A Sprain of other part of left wrist and hand, initial encounter (principal); S60.222A Contusion of left hand, initial encounter; M25.532 Pain in left wrist
CPT/HCPCS: 99024

== ENCOUNTER → 2025-03-20 09:51 | Outpatient (BNV) | payer MEDICAID, SELFPAY | PROVIDERS: Visit Provider Radiology Diagnostic Radiology | DX: M25.532 Pain in left wrist (principal) | CPT/HCPCS: 73110 ==

== ENCOUNTER 2025-04-09 13:31 | Outpatient (AMB) | payer MEDICAID, SELFPAY ==
[2025-04-09 13:38] VITALS: BMI 41.0
--- NOTE | 2025-04-09 13:38 | MHC.OFFVIS ---
Vital Signs 04/09/25 13:38 Height 5 ft 1 in Weight 217 lb BMI 41.0 Intake Visit Reasons: PO LT SLIL repair, DOS 02/01/25 AR w/xrays Intake Note: Brianna is a 34 year old right hand dominant female who presents today for a Cast Change status post Left Scapholunate ORIF & Scapholunate Ligament Repair, DOS: 02/01/[address] Rose. She was last seen on 03/20/25 where she was placed in a new short-arm cast. Patient reports today her cast got wet and she was able to slide it off. She came in to the office using a Velcro wrist brace that she already had at home. X-rays updated in office as she is due for a 3 week follow up. Allergies diphenhydramine (From BENADRYL) Allergy (Unknown, Verified 04/09/25 13:39) HYPER AND SHAKING HPI HPI PO LT SLIL repair, DOS 02/01/25 AR w/xrays: Details: Brianna is a 34 year old right hand dominant female who presents today for a Cast Change status post Left Scapholunate ORIF & Scapholunate Ligament Repair, DOS: 02/01/[address] Rose. She was last seen on 03/20/25 where she was placed in a new short-arm cast. Patient reports today her cast got wet and she was able to slide it off. She came in to the office using a Velcro wrist brace that she already had at home. X-rays updated in office as she is due for a 3 week follow up. Patient reports no pain in the left hand or wrist. No other acute complaints or concerns at this time. 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 [employer] All systems reviewed & are unremarkable except as noted in HPI and below Physical Exam Vital Signs: BMI result Body Mass Index 41.0 Const General: no acute distress and alert Orientation/consciousness: patient oriented x3 Neuro General: patient oriented x3 Extrem Other: The patient was alert oriented and in no acute distress The incision & pin sites are well healed, no evidence of infection K-wires removed at previous visit She can make a weak fist and extend all her digits She has full thumb ROM without difficulty Sensation is intact Cap refill is brisk Radiographs: 3 views of the left wrist & scaphoid were taken & viewed by me today in clinic. They show a satisfactory reduction of the scapholunate interval, improvement of the scapholunate angle, with unchanged alignment from previous x-rays Psych Appearance: grossly normal Affect: normal affect Attitude: cooperative Assessment & Plan Assessment & Plan (1) Left scapholunate ligament tear: Code(s): S63.8X2A - Sprain of other part of left wrist and hand, initial encounter Category: Medical (2) Contusion of left hand: Code(s): S60.222A - Contusion of left hand, initial encounter Category: Medical (3) Left wrist pain: Code(s): M25.532 - Pain in left wrist Category: Medical Plan Assessment & Plan: 1. Left scapholunate ligament tear, S/P open reduction scapholunate joint with fixation, & scapholunate ligament repair DOS: 02/01/25 DOI: 01/14/25 K-wires removed: 03/20/25 2. Left 2nd MCP joint contusion vs possible fracture, S/P fall DOI: 01/14/25 The patient appears to be doing well post-operatively I educated her about the post-operative course Velcro wrist splint to be worn with daytime activities Remove while at rest to work on early range of motion of the left wrist 2 lb weight limit in left hand OT referral placed for gentle range of motion of the left hand and wrist She will follow up in 4 weeks, with X-rays. Orders: Orders XR wrist LT w scaphoid Today M25.532 - Pain in left wrist OT Evaluation and Treatment Today S63.8X2A - Sprain of other part of left wrist and hand, initial encounter Coding Level of Care Code Global (97980) Diagnoses Left scapholunate ligament tear S63.8X2A Contusion of left hand S60.222A Left wrist pain M25.532
--- OUTSIDE RECORDS SUMMARY | 2025-04-09 18:15 | XMS_ITS | Clinical Summary ---
Author Organization [facility] Address [address] [place] [phone] Phone Care Team Providers Care Curriculum And Assessment Director Name Role Phone Dona Anderson MD Unavailable Nacho Martin MD Primary Care Provider [phone] Allergies Active Allergy Reactions Criticality Noted Date [...] trimester 12/06/2022 Overview (12/14/2022): Pt transferred to [facility] and having IOL at 34w for severe features & ?partial placental abruption. Will likely return to [facility] for and [facility] for PPV 2x wkly HELLP labs [...] 35wks she will need to deliver at [facility] -She will need to come [...] trimester 12/04/2022 Gestational diabetes mellitus (GDM) in [facility] 11/05/2022 Overview (11/05/2022): Diagnosis [...] care for . 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 We will continue to discuss [...] Date Type Department Care Team Description 02/12/2025 [facility] RISK SCORES SYSTEM GENERATED External System [...] w/ Preservative IM 02/22/2019,02/26/2017 MMR 11/15/1997,04/06/1994 Novel [id number], Injectable 03/01/2009 Polio - OPV 11/15/1997, 4,02/10/1993,1992 [...] Additional history exists HEPATITIS C SCREENING Completed 07/07/2022, 023 HIV ONE-TIME SCREENING (18-65 YEARS) Completed 07/07/2022 [...] PM EST) HCV NON-REACTIV E NON-REACTI VE [facility] Blood 07/07/2022 5:03 PM EST 07/07/2022 9:27 PM EST Caroline Nuñez [facility] BLOOD BKR ORDERABLES Final R esult [address] [address] * Pap Test (07/07/2022 12:00 AM EST) 07/07/2022 07/08/2022 9:5 1 AM EST Narrative SEE NARRATIVE - 07/13/2022 11:18 AM EST [address] [address] Bronc Breaker: Ree Stafford MD [employer] [facility] Cytology Report FINAL DIAGNOSIS A. PAP SMEAR [...] 59, 66, 68) Note: Testing performed by [facility] HR-HPV analysis. Clinical correlation is advised. This HPV test was performed at [facility], [address] [place] [address]. This test has been FDA approved for [facility] cervical cytology specimens. The accuracy and precision of this test for all other specimen sources has been verified in the Cytopathology Laboratory of the [facility] and has not been cleared or approved by the U.S. Food and Drug Administration. Clinical correlation is advised. CLINICAL HISTORY Date of Last Menstrual Period: Not Provided Menstrual History: Other Clinical Conditions: Screening Pap SPECIMEN SOURCE A: PAP SMEAR (SUREPATH) CE Patient Name: FIFI MARISCAL : 1990 (Age: 32) Sex: F Institution: [facility] Location: [facility] Date of Collection: 07/07/2022 Date of Reported: 07/13/2022 11:18 Results to: Caroline LAMAR Caroline Nuñez [facility] CYTOLOGY ORDERABLES Final Result SEE NARRATIVE from Last 3 Months or Most Recently Relevant to Health Maintenance Insurance HE[employer]AF[employer] NET PARTIAL STATE PPO HEALTH SAF[employer]Y NET PARTIAL Member Subscriber Plan / Payer (Ef fective 2022-Present) Name:Fifi Mariscal Relation to Subscriber:Self Name:Mariscal, Fifi Payer ID:Not on file Group ID:Not on file Type:Medicaid Address: [address] PPO Member Subscriber Plan / Payer (Ef fective 2022-Present) Name:Fifi Mariscal Relation to Subscriber:Self Name:Fifi Mariscal Payer ID:Not on file Group ID:Not on file Type:Medicaid Address: [address] PPO Member Subscriber Plan / Payer (Ef fective 2022-Present) Name:Fifi Mariscal Relation to Subscriber:Self Name:Fifi Mariscal Payer ID:Not on file Group ID:Not on file Type:Medicaid Address: [address] PPO HEALTH SAFETY NET PARTIAL Member Subscriber Plan / Payer (Ef fective 2022-Present) Name:Fifi Mariscal Relation to Subscriber:Self Name:Fifi Mariscal Payer ID:Not on file Group ID:Not on file Type:Medicaid Address: [address] OUT STATE PPO HEALTH SAFETY NET PARTIAL Member Subscriber Plan / Payer (Ef fective 2022-Present) Name:Fifi Mariscal Relation to Subscriber:Self Name:Fifi Mariscal Payer ID:Not on file Group ID:Not on file Type:Medicaid Address: [address] OUT [facility] PPO Claire AKINS [place] PARTIAL Member Subscriber Plan / Payer (Ef fective 2022-Present) Name:Fifi Mariscal Relation to Subscriber:Self Name:Fifi Mariscal Payer ID:Not on file Group ID:Not on file Type:Medicaid Address: [address] PPO OUT STATE PPO HEALTH SAFETY NET PARTIAL PPO Advance Directives For more information, please contact: [phone] (9AM - 5PM Jaylyn/[facility], Wednesday-Wednesday) * Full Code (Latest Code Status on File) Date Activated Date Inactivated Comments 12/06/2022 8:05 PM Question Answer Comments Code Status Confirmed With: Patient Care Teams Curriculum And Assessment Director Relationship Specialty Start Date End Date Nacho Martin MD [address] [facility] [address] [place] [phone] [email or web address] PCP - General 05/20/17 Dona Anderson MD [address] [place] [address], [facility] [address] [place] [address] [email or web address] Historical LMR Provider 03/04/17 Additional Source Comments The information contained in this document represents components of the legal health record. It is not the complete legal health record.[facility]
--- OUTSIDE RECORDS SUMMARY | 2025-04-09 18:15 | XMS_ITS | Encounter Summary ---
Author Organization [facility] Address [address] [place] [phone] Phone Care Team Providers Care Hydrogen Power Plant Engineer Name Role Phone Dona Anderson MD Unavailable Nacho Martin MD Primary Care Provider [phone] Reason for Referral * Consultation (Within 3 days (urgent)) - Closed Specialty Diagnoses / Procedures Referred By Valery t Referred To Contact Rhonda Ray CNM [address] [place] [phone] Phone: tel: fax: [email or web address] [facility] [address] [place] [address] Phone: tel: Referral ID Status Reason Start Date Expiration Date Visits Re quested Visits Authorized [id number] Closed 12/04/2022 12/05/2023 1 1 Encounter Details Date Type Department Care Team (Late st Contact Info) Description 12/04/2022 Telephone [facility] Obstetrics - Virtual Department [address] [place] [address] Rhonda Ray CNM [address] [phone] [email or web address] Social History Tobacco Use Types Packs/Day Years [...] Diagnoses Order Schedule Ambulatory referral to [facility] Sleep Medicine Outpatient Referral Routine Ordered: 12/04/2022 documented as of this encounter Visit Diagnoses Not on filedocumented in this encounter Care Teams Hydrogen Power Plant Engineer Relationship Specialty Start Date End Date Nacho Martin MD [address] [place] [address] [phone] [email or web address] PCP - General 05/20/17 Dona Anderson MD [address] [place] [phone] [email or web address] Historical LMR Provider 03/04/17 documented as of this encounter Additional Source Comments The information contained in this document represents components of the legal health record. It is not the complete legal health record.[facility]
== END 2025-04-09 14:13 | disposition home or self-care (01) ==
LOC: HO.HOS 13:31
DX: S63.8X2A Sprain of other part of left wrist and hand, initial encounter (principal); S60.222A Contusion of left hand, initial encounter; M25.532 Pain in left wrist
CPT/HCPCS: 99024

== ENCOUNTER 2025-04-09 13:31 | Outpatient (REF) | payer MEDICAID, SELFPAY ==
--- NOTE | ~2025-04-09 | XR_ITS ---
EXAMINATION: XR WRIST NAVICULAR LEFT HISTORY: M25.532 - Pain in left wrist COMPARISON: Comparison is made with the prior examination dated 03/20/2025. FINDINGS: Four views of the left wrist including a scaphoid view are submitted. Osseous mineralization is normal. The previously seen K wires through the scaphoid have been removed. No fracture is seen. Again seen is mild widening of the scapholunate space. The soft tissues are unremarkable. XR/XR wrist LT w scaphoid IMPRESSION: Interval removal of K wires through the scaphoid. Mild widening of the scapholunate space without change. Electronically signed by: Jack Damon MD 04/09/2025 02:17 PM EST
== END 2025-04-09 13:32 | disposition home or self-care (01) ==
LOC: HO.HOSX 13:31
DX: S63.8X2A Sprain of other part of left wrist and hand, initial encounter (principal); S60.222A Contusion of left hand, initial encounter
CPT/HCPCS: 73110; 99212

== ENCOUNTER → 2025-04-09 13:53 | Outpatient (BNV) | payer MEDICAID, SELFPAY | PROVIDERS: Visit Provider Radiology Diagnostic Radiology | DX: M25.532 Pain in left wrist (principal) | CPT/HCPCS: 73110 ==